=== PATIENT | female | born 1935 | race Caucasian/White ===

== ENCOUNTER → 2017-05-31 | Outpatient (CLI) | payer MEDICARE, BC ==
--- NOTE | 2017-05-31 14:21 | USB ---
EXAMINATION TYPE: US breast limited RT DATE OF EXAM: 05/31/2017 COMPARISON: NONE CLINICAL HISTORY: N63 PALPABLE MASS. Targeted right breast ultrasound was performed from the 9:00 to the 12:00 position as well as the ret roareolar region and the axillary tail. At 10:00, 3 cm from the nipple there is a single prominent du ct. The patient does not note nipple discharge. No suspicious sonographic findings are seen. No cysti c or solid masses are present. IMPRESSION: BI-RADS 2- Benign finding. Annual screening mammography is recommended. Single prominent duct is noted. If nipple discharge is present ductogram could be performed.
--- NOTE | 2017-06-01 08:04 | MM ---
Reason for exam: clinical finding. Last mammogram was performed 15 years ago. History: Patient is postmenopausal. Took estrogen for 27 years. Indicated problem(s): lump or thickening in the right breast. Physical Findings: Nurse did not find any significant physical abnormalities on exam. MG 3D Diag Mammo W/Cad JOSE Bilateral CC and MLO view(s) were taken. Prior study comparison: August 06, 2015, mammogram. July 08, 2014, mammogram. There are scattered fibroglandular densities. Finding: There is a 2mm group of coarse heterogeneous calcifications in the upper outer quadrant, middle position of the left breast. These results were verbally communicated with the patient and result sheet given to the patient on 05/31/17. ASSESSMENT: Suspicious, BI-RAD 4 RECOMMENDATION: Stereotactic core biopsy of the left breast. (ultrasound of right palpable) Called Dr. Sawyer with mammographic findings and has scheduled an appointment for the patient for 06/06/17 at 9:[address] Loza. PRELIMINARY REPORT CALLED AND FAXED TO DR. LOZA ON 06/01/17 /TP.
== END | disposition home or self-care (01) ==
LOC: RADMAMWWP 10:30
PROVIDERS: ATTEND Internal Medicine
DX: R92.8 Other abnormal and inconclusive findings on diagnostic imaging of breast (principal); N63 Unspecified lump in breast
CPT/HCPCS: 76642; G0204; G0279

== ENCOUNTER → 2017-06-16 | Day surgery (SDC) | payer MEDICARE, BC ==
[2017-06-16 08:14] VITALS: PULSE 61; RESP 16; BMI 24.7
[2017-06-16 09:44] VITALS: BP 147/74; TEMP 98.1
--- NOTE | 2017-06-16 09:53 | MM ---
EXAMINATION TYPE: MG stereo VAD BX LT DATE OF EXAM: 06/16/2017 COMPARISON: Prior mammogram May 31, 2017 and older mammograms CLINICAL HISTORY: Abnormal mammogram TECHNIQUE: Stereotactic guided core biopsy of left breast. FINDINGS: The procedure of stereotactic guided core biopsy was explained to the patient. Benefits, a lternatives, and risks were discussed. An informed consent was then obtained. [facility] for biopsy was chosen. Shortness pathway was lateral approach. I performed the localization, then surgeon, Dr. Loza performed the remainder of the procedure. A vacuum phorus biopsy gun was used to obtain multiple core samples. The patient tolerated the procedure well without any immediate complication. The patient was kept in the radiology department for short stay after the procedure and then discharged home in stable condi tion. Targeted calcifications are identified in specimen mammogram. Post biopsy mammogram shows the clip to appear in satisfactory position relative to the targeted area of concern on the preprocedure images. No residual calcifications are identified. IMPRESSION: SUCCESSFUL, UNCOMPLICATED STEREOTACTIC GUIDED CORE BIOPSY OF AREA OF CONCERN IN THE LEFT BREAST, FULL PATHOLOGY RESULTS TO FOLLOW. Low index of suspicion noted at time of procedure.
--- NOTE | 2017-06-16 13:29 | PCN ---
PROCEDURE NOTE The patient is an 82-year-old white female who presents for a mammographic abnormality noted in the left breast. A bilateral mammogram was performed on 05/31/2017. The right breast did not reveal any lesions of concern. In the left breast, there was a 2 mm group of coarse heterogeneous calcifications in the upper outer quadrant middle position of the left breast. The patient on physical examination had no supraclavicular, cervical or axillary adenopathy of concern. Multi positional exam of both breasts did not reveal any dominant masses or nodules of concern. PROCEDURE: The procedure performed was a left breast stereotactic core biopsy. The location of the lesion was in the upper outer quadrant in the middle position of the left breast. The approach used to target the lesion was lateral to medial. The decision for this was secondary to the distance which would be travel, the compression of the breast and the attempt to avoid the vessels. Following targeting of the lesion, the skin of the breast was prepped using Betadine and 1% lidocaine was used to anesthetize the area of the skin and the deep tissues. A Eviva 9-gauge vacuum needle was introduced to the correct location. Prefire films were obtained. Postfire films were then obtained and the biopsy was performed. The specimen was radiographed and calcifications were identified. Following this, an titanium clip was placed. Radiograph revealed that the clip was in the correct location. The patient tolerated the procedure in stable condition. The specimen was sent for pathologic evaluation. MMODL / IJN: [id number] /
== END ==
LOC: RADMAMWWP 07:50
PROVIDERS: ATTEND Surgery
DX: R92.8 Other abnormal and inconclusive findings on diagnostic imaging of breast (principal); N60.12 Diffuse cystic mastopathy of left breast
CPT/HCPCS: 19081; A4648; J2001; 88305

== ENCOUNTER → 2018-11-01 | Outpatient (CLI) | payer MEDICARE, BC ==
--- NOTE | 2018-11-04 09:57 | MM ---
Reason for exam: additional evaluation requested from prior study. Last mammogram was performed 1 year and 5 months ago. History: Patient is postmenopausal. Benign MG stereo VAD BX LT of the left breast, June 16, 2017. Took estrogen for 27 years. Physical Findings: Nurse did not find any significant physical abnormalities on exam. MG 3D Diag Mammo W/Cad JOSE Bilateral CC and MLO view(s) were taken. Prior study comparison: May 31, 2017, bilateral MG 3d diag mammo w/cad JOSE. August 06, 2015, mammogram. The breast tissue is heterogeneously dense. This may lower the sensitivity of mammography. Previous mammotome biopsy in the left breast. No significant new finding when compared with prior studies. These results were verbally communicated with the patient and result sheet given to the patient on 11/01/18. ASSESSMENT: Benign, BI-RAD 2 RECOMMENDATION: Routine screening mammogram of both breasts in 1 year.
== END | disposition home or self-care (01) ==
LOC: RADMAMWWP 09:19
PROVIDERS: ATTEND Internal Medicine
DX: R92.8 Other abnormal and inconclusive findings on diagnostic imaging of breast (principal)
CPT/HCPCS: 77066; G0279; 77062

== ENCOUNTER → 2019-02-11 | Outpatient (CLI) | payer MEDICARE, BC ==
--- NOTE | 2019-02-11 09:10 | XR ---
EXAMINATION TYPE: XR chest 2V DATE OF EXAM: 02/11/2019 COMPARISON: 09/10/2017 HISTORY: Shortness of breath TECHNIQUE: Frontal and lateral views of the chest are obtained. FINDINGS: Scattered senescent parenchymal changes noted. Hyperinflation compatible with COPD. No evidence for infiltrate. No evidence for atelectasis. Heart size is stable. Mediastinal structures are stable and grossly unremarkable. No evidence for hilar prominence. Degenerative changes dorsal spine. IMPRESSION: 1. No evidence for acute pulmonary disease.
== END | disposition home or self-care (01) ==
LOC: RADXRMAIN 08:43
PROVIDERS: ATTEND Internal Medicine
DX: J06.9 Acute upper respiratory infection, unspecified (principal)
CPT/HCPCS: 71046

== ENCOUNTER → 2019-06-14 | Outpatient (CLI) | payer MEDICARE, BC ==
[2019-06-15 01:31] LABS: Immunoglobulin E 3.57 IU/mL (0.00-114.00); Immunoglobulin E 4.56 IU/mL (0.00-114.00)
[2019-06-15 01:54] LABS: Cat Epith & Dander IgE <0.10 kU/L; Dermato. farinae IgE <0.10 kU/L; Dog Dander IgE <0.10 kU/L
[2019-06-15 01:56] LABS: Alternaria alternata IgE <0.10 kU/L; Aspergillus fumagatus IgE <0.10 kU/L; Birch IgE <0.10 kU/L; Cladosporian herbarum IgE <0.10 kU/L; Cockroach IgE <0.10 kU/L; Elm IgE <0.10 kU/L; Maple (Box Elder) IgE <0.10 kU/L; Oak IgE <0.10 kU/L
[2019-06-15 01:57] LABS: Ragweed,Common IgE <0.10 kU/L
[2019-06-15 01:58] LABS: Egg White IgE <0.10 kU/L; Red Top (Bentgrass) IgE <0.10 kU/L
[2019-06-15 01:59] LABS: Codfish IgE <0.10 kU/L
[2019-06-15 02:00] LABS: Peanut IgE <0.10 kU/L; Soybean IgE <0.10 kU/L
[2019-06-15 02:01] LABS: Clam IgE <0.10 kU/L; Shrimp IgE <0.10 kU/L; Walnut IgE (Food) <0.10 kU/L
[2019-06-15 02:02] LABS: Scallop IgE <0.10 kU/L
== END | disposition home or self-care (01) ==
LOC: LABWHC1 16:34
PROVIDERS: ATTEND Internal Medicine Critical Care Medicine
DX: J40 Bronchitis, not specified as acute or chronic (principal); J45.998 Other asthma; R05 Cough
CPT/HCPCS: 36415; 82785; 85008; 86003

== ENCOUNTER → 2019-10-25 | Outpatient (CLI) | payer MEDICARE, BC ==
--- NOTE | 2019-10-25 12:53 | BD ---
EXAMINATION TYPE: Axial Bone Density DATE OF EXAM: 10/25/2019 COMPARISON: NONE CLINICAL HISTORY: Z 78.0 Height: 59 IN Weight: 124 LBS FRAX RISK QUESTIONS: Alcohol (3 or more units per day): Family History (Parent hip fracture): Glucocorticoids (More than 3mos): (Ex: prednisone, prednisolone, methylprednisolone, dexamethasone, and hydrocortisone). History of Fracture in Adulthood: YES LT ANKLE AGE 83; LT WRIST AGE 83; LT WRIST AGE 60; RT WRIST A GE 60 Secondary Osteoporosis: 3. Menopause before 45: TOTAL HYST AGE 37 4. Malnutrition: YES RISK FACTORS HISTORY OF: History of Wrist Fracture: LT WRIST AGE 83 AND AGE 60; RT WRIST AGE 60 Surgery to Spine: L-SPINE SURGERY 2004 AND 2009 Family History of Osteoporosis: YES SISTERS(M) Active: YES Diet low in dairy products/other sources of calcium: YES Postmenopausal woman: TOTAL HYST AGE 37 Take estrogen and/or progesterone medications: NOT NOW How long: AGE 35-55 Lost more than 2 inches in height since high school: YES 3 " MEDICATIONS: Thyroid Medications: YES Which medication: Levothyroxine How Lon+ YEARS Osteoporosis Medications: NOT NOW Which medication: Fosamax How Lon YEARS Additional Medications: LEVOTHYROXINE, MULTI VIT, B12, CHOLESTEROL MEDS EXAM MEASUREMENTS: Bone mineral densitometry was performed using the [employer] System. L-SPINE SURGERY 2004 AND 2009 Bone mineral density about the R hip (g/cm2): 0.722 Bone mineral density about the L hip (g/cm2): 0.705 T Score values are as follows: -----R Neck: -2.3 -----L Neck: -2.4 -----R Total: -2.0 -----L Total: -1.9 Bone mineral density BASELINE JOSE WRIST FX AGE 60; LT WRIST FX AGE 83 IMPRESSION: Osteopenia (T Score between -2.5 and -1). There is slightly increased risk of fracture and the patient may be considered for treatment. Re-Screen 2-5 years. NOTE: T-SCORE=SD OF THE YOUNG ADULT MEAN. `
== END | disposition home or self-care (01) ==
LOC: RADBDWWP 09:47
PROVIDERS: ATTEND Internal Medicine
DX: M85.80 Other specified disorders of bone density and structure, unspecified site (principal); Z78.0 Asymptomatic menopausal state
CPT/HCPCS: 77080

== ENCOUNTER → 2020-05-29 | Outpatient (CLI) | payer MEDICARE, BC ==
[2020-05-29 13:19] LABS: HCT 36.4 % (34.0-46.0); HGB 11.2 gm/dL (11.4-16.0); Hypochromasia Marked; MCH 28.9 pg (25.0-35.0); MCHC 30.7 g/dL (31.0-37.0); MCV 94.2 fL (80.0-100.0); Mean Platelet Volume 6.9; Platelet Count 180 k/uL (150-450); RBC 3.87 m/uL (3.80-5.40); RDW 14.7 % (11.5-15.5)
[2020-05-29 13:34] LABS: African American GFR (CKD) >90 (>60 ml/min/1.73 sqM); Anion Gap 9 mmol/L; Blood Urea Nitrogen 16 mg/dL (7-17); Carbon Dioxide 26 mmol/L (22-30); Chloride 102 mmol/L (98-107); Non-African American GFR(CKD) 86 (>60 ml/min/1.73 sqM); Potassium 4.6 mmol/L (3.5-5.1); Sodium 137 mmol/L (137-145)
== END | disposition home or self-care (01) ==
LOC: LABPAT 10:46
PROVIDERS: ATTEND Internal Medicine Interventional Cardiology
DX: Z01.818 Encounter for other preprocedural examination (principal); R06.02 Shortness of breath
CPT/HCPCS: 80051; 82565; 84520; 85027

== ENCOUNTER 2020-06-02 06:29 | Day surgery (SDC) | payer MEDICARE, BC ==
[2020-05-28 09:25] VITALS: BMI 23.6
[~2020-06-02 06:29] MED LIST: ALPRAZolam 0.25 MG TAB PO PRN; ALPRAZolam 0.5 MG TAB PO PRN; ASPIRIN 325 MG TAB PO STA; ATORVASTATIN 80 MG TAB PO STA; NITROGLYCERIN SL TABS 0.4 MG TAB SUBLINGUAL PRN; SODIUM CHLORIDE 0.9% 1,000 ML in EMPTY BAG 1 BAG IV ONE
[2020-06-02] MEDS ORDERED: SODIUM CHLORIDE 0.9% 1,000 ML IV ONE (07:07)
[2020-06-02 07:10] VITALS: RESP 16; TEMP 98.8
[2020-06-02] MEDS ORDERED: LIDOCAINE 1% INJ 10MG/ML (20 ML MDV) ONE (07:19)
[2020-06-02] MEDS ORDERED: VERAPAMIL 2.5 MG/ML 2 ML AMP ONE (07:20)
[2020-06-02] MEDS ORDERED: HEPARIN SODIUM 1,000 UN/ML (10ML VL) ONE (07:55)
[2020-06-02] MEDS ORDERED: fentaNYL (PF) 50 MCG/ML 2 ML AMP ONE (07:55)
[2020-06-02] MEDS: MIDAZOLAM 2 MG/2 ML VIAL IVP ONE ×2 (07:58→08:06)
[2020-06-02] MEDS: fentaNYL (PF) 50 MCG/ML 2 ML AMP IVP ONE ×2 (07:58→08:06)
[2020-06-02] MEDS ORDERED: LIDOCAINE 1% INJ 10MG/ML (20 ML MDV) SQ ONE (08:00)
[2020-06-02] MEDS ORDERED: VERAPAMIL SYRINGE (5 MG/10 ML) INTRAARTER ONE (08:02)
[2020-06-02] MEDS ORDERED: HEPARIN SODIUM 1,000 UN/ML (10ML VL) IV ONE (08:03)
[2020-06-02] MEDS ORDERED: IOPAMIDOL-370 125ML BTL INJ ONE (08:12)
[2020-06-02] MEDS ORDERED: RX INFO: IV CONTRAST WAS GIVEN 1 EACH MISC MISCELLANE PRN (08:16)
[2020-06-02] MEDS ORDERED: SODIUM CHLORIDE 0.9% 1,000 ML IV SCH (08:30)
--- NOTE | 2020-06-02 09:35 | CC ---
CARDIAC CATHETERIZATION REPORT DATE OF SERVICE: 06/02/2020 PERFORMING PHYSICIAN: Leland Bardales MD. PROCEDURE PERFORMED: 1. Selective right and left coronary angiogram. 2. Left heart catheterization. INDICATION: This is a very pleasant 85-year-old female patient with hypertension and dyslipidemia who was experiencing symptoms of shortness of breath. The shortness of breath with exertion. She was seen by her graduating machine operator, Dr. Shah, who ruled out any pulmonary etiology for the shortness of breath, which was concerning for angina equivalent. Because of that, a heart catheterization was advised. APPROACH: Right radial artery. COMPLICATION: None. LEVEL OF SEDATION: Moderate with sedation length of 16 minutes. PROCEDURE DESCRIPTION: After obtaining an informed consent, the patient was brought to the cardiac blood bank laboratory technician. The right radial artery was cannulated using micropuncture technique and a micropuncture wire passed easily then I placed a 5-[place]izen [place] sheath out. Subsequently I did selective right and left or history I did place a 6-[place]izen [place] sheath. I gave the patient 2 mg of verapamil IA and 6000 units of heparin IV. Selective right and left coronary angiogram performed using JR4 and JL3.5 catheters. Left heart catheterization was performed using the JR4 catheter which crossed the aortic valve then I did pullback across the valve. The procedure was completed without any complication. SELECTIVE CORONARY ANGIOGRAM: 1. The right coronary artery is a large caliber vessel and is a dominant vessel, appeared to be angiographically normal. The study bifurcates into PDA and PLV branches and both appeared to be angiographically normal. 2. The left main is angiographically normal. It bifurcates into left circumflex and left anterior descending artery. 3. The left circumflex is a large caliber vessel, it is a nondominant vessel. The left circumflex is angiographically normal and gives rise into first and second obtuse marginal branches both appeared to be angiographically normal. 4. The LAD: The LAD is angiographically normal. Within the proximal portion, it gives rise into a large diagonal branch which seems to be angiographically normal. 5. HEMODYNAMICS: The LVEDP was 4-8 mmHg without significant gradient across the aortic valve. CONCLUSION: 1. Normal coronary angiogram. 2. Normal LVEDP. POSTPROCEDURE MANAGEMENT: 1. Medical treatment. 2. Follow up with the patient. MMODL / IJN: [id number] /
--- NOTE | 2020-06-02 09:47 | LTR ---
DATE OF SERVICE: 06/02/2020 RE: Chelita Bundy Dear Dr. Barrow: Ms. Chelita Bundy underwent today heart catheterization and that showed normal coronaries. I want to thank you for allowing us to participate in her care and please do not hesitate to call if you have any question or concern. Sincerely yours, Leland Bardales MD MMASTRID / GLORIA: [id number] /
[2020-06-02] MEDS ORDERED: MAG HYDROX/AL HYDROX/SIMETH 30 ML CUP PO PRN (10:14)
[2020-06-02] MEDS ORDERED: MAG HYDROX/AL HYDROX/SIMETH 30 ML CUP ONE (11:09)
[2020-06-02 13:31] VITALS: BP 128/72; PULSE 70
== END 2020-06-02 13:15 | disposition home or self-care (01) ==
LOC: CATHCVL 06:29
PROVIDERS: ATTEND Internal Medicine Interventional Cardiology
DX: R06.02 Shortness of breath (principal); I10 Essential (primary) hypertension; E78.5 Hyperlipidemia, unspecified; J45.909 Unspecified asthma, uncomplicated; Z88.2 Allergy status to sulfonamides; Z79.890 Hormone replacement therapy; Z79.51 Long term (current) use of inhaled steroids; Z79.82 Long term (current) use of aspirin; Z79.899 Other long term (current) drug therapy; Z72.0 Tobacco use
CPT/HCPCS: 93458; C1769 ×2; C1894; J2250; J2001; J3010; J1644; Q9967

== ENCOUNTER → 2020-08-13 | Outpatient (CLI) | payer MEDICARE, BC ==
--- NOTE | 2020-08-13 10:28 | FL ---
Barium swallow HISTORY: K 46.9, K 21.9 Patient was given high density barium to drink. 1 minute 32 seconds fluoroscopy time, 10 intraoperative images The swallowing mechanism is normal. There is a moderate hiatal hernia with partial intrathoracic stom ach noted. Tertiary esophageal contractions are present. Incidental note made of thoracic cord stimul ator. No gastroesophageal reflux identified during the course of the exam. IMPRESSION: Moderate hiatal hernia with partial intrathoracic stomach
== END | disposition home or self-care (01) ==
LOC: RADUSWWP 08:54
PROVIDERS: ATTEND Surgery
DX: K44.9 Diaphragmatic hernia without obstruction or gangrene (principal)
CPT/HCPCS: 74220

== ENCOUNTER → 2020-08-26 | Outpatient (CLI) | payer MEDICARE, BC ==
--- NOTE | 2020-08-26 16:06 | CT ---
EXAMINATION TYPE: CT chest abdomen wo con DATE OF EXAM: 08/26/2020 INDICATION: hiatal hernia COMPARISON: None CT DLP: 260 mGycm CONTRAST: Performed with Oral Contrast. TECHNIQUE: Axial images at 5 mm thick sections. Reconstructed images in the coronal plane. Delayed images through the kidneys. FINDINGS: CT CHEST: Portion of the thyroid visualized is normal. There is a 0.4 cm nodule within the periphery of the right upper lobe. Series 4 image 10. An addition al 0.4 cm nodule study more inferior. Series 4 image 13. No enlarged mediastinal or hilar adenopathy is evident. The ascending aorta diameter at the level of the main pulmonary artery is 3.2 cm. The main pulmonary artery diameter at the bifurcation is 3.1 cm. Coronary artery indications present. CT ABDOMEN: There is a moderate size hiatal hernia present. Contrast within the hiatal hernia. Liver: Normal Spleen: Normal Pancreas: Normal Adrenal glands: The adrenal glands are normal. Gallbladder: Normal Kidneys: No masses are evident. No hydronephrosis is present. No cysts are present. Delayed images were obtained through the kidneys, which remain unremarkable. Aorta: Vascular calcification is within the aorta. Inferior vena cava: Normal. Limited CT PELVIS: Loops of bowel within the abdomen and pelvis are normal. There are loops of bowel which are incom pletely distended or lack oral contrast limiting their evaluation. Appendix: Not visualized IMPRESSIONS: 1. 1. Moderate size hiatal hernia with oral contrast present. Reflux is not excluded. 2. Small pulmonary nodules peripherally right upper lobe. Follow-up exam in one year can be performed . Follow-up in 6 months if the patient is at high risk.
== END | disposition home or self-care (01) ==
LOC: RADCTMAIN 09:56
PROVIDERS: ATTEND Surgery
DX: K44.9 Diaphragmatic hernia without obstruction or gangrene (principal); R91.8 Other nonspecific abnormal finding of lung field
CPT/HCPCS: 71250; 74150

== ENCOUNTER 2020-09-08 12:35 | Inpatient (IN) | payer MEDICARE, BC ==
[2020-09-08] MEDS ORDERED: PANTOPRAZOLE 40 MG/10 ML VIAL IVP STA (13:10)
[2020-09-08] MEDS ORDERED: SODIUM CHLORIDE 0.9% 1,000 ML IV STA (13:10)
--- NOTE | 2020-09-08 13:13 | ED ---
General Adult HPI - General Chief complaint: Recheck/Abnormal Lab/Rx Stated complaint: abn labs Time Seen by Provider: 09/08/20 12:40 Source: patient, RN notes reviewed, old records reviewed Mode of arrival: ambulatory Limitations: no limitations - History of Present Illness Initial comments: This is a 85-year-old female with a past medical history significant for hiatal hernia. Patient comes in today because she was getting some preop labs and he told her hemoglobin was extremely low per patient states she has been very weak lately and tired but denies any known bleeding. Patient denies any black or bloody stools. Patient states she's not had a history of anemia. Patient denies any chest pain difficulty breathing shortness of breath. Patient denies any abdominal pain. Patient denies nausea vomiting diarrhea. Patient denies lightheadedness or dizziness. Patient states she's been feeling very weak for a month or so now - Related Data Home Medications Medication Instructions Recorded Confirmed Levothyroxine Sodium [Synthroid] 175 mcg PO DAILY 05/31/17 09/08/20 Simvastatin 40 mg PO DAILY 05/31/17 09/08/20 Albuterol Sulfate [Proair Hfa] 1 - 2 puff INHALATION RT-Q6H PRN 05/28/20 09/08/20 HYDROcodone/APAP 7.5-325MG [[place] 1 tab PO Q6H PRN 05/28/20 09/08/20 7.5-325] Montelukast [Singulair] 10 mg PO DAILY 05/28/20 09/08/20 Multivit with Calcium,Iron,Min 1 tab PO DAILY 05/28/20 09/08/20 [Women's Multivitamin] Atorvastatin Calcium [Lipitor] 20 mg PO DAILY 09/08/20 09/08/20 Budesonide [Pulmicort] 0.5 mg INHALATION RT-BID 09/08/20 09/08/20 Diltiazem HCl [Diltiazem HCl 24Hr 120 mg PO DAILY 09/08/20 09/08/20 ER] Formoterol Fumarate [Perforomist] 20 mcg INHALATION RT-BID 09/08/20 09/08/20 Furosemide [Lasix] 20 mg PO DAILY PRN 09/08/20 09/08/20 Metoprolol Succinate (ER) [Toprol 25 mg PO DAILY 09/08/20 09/08/20 Xl] Omeprazole 40 mg PO DAILY 09/08/20 09/08/20 Sertraline HCl [Zoloft] 50 mg PO DAILY 09/08/20 09/08/20 traZODone HCL [Desyrel] 50 mg PO HS 09/08/20 09/08/20 Allergies Allergy/AdvReac Type Severity Reaction Status Date / Time bee venom protein (honey bee) Allergy Anaphylaxis Verified 09/08/20 13:19 Sulfa (Sulfonamide Allergy Rash/Hives Verified 09/08/20 13:19 Antibiotics) Review of Systems ROS Statement: Those systems with pertinent positive or pertinent negative responses have been documented in the HPI. ROS Other: All systems not noted in ROS Statement are negative. Past Medical History Past Medical History: Asthma, Hyperlipidemia, Hypertension, Thyroid Disorder Additional Past Medical History / Comment(s): shortness of breath, past vertigo hx. seasonal allergies. History of Any Multi-Drug Resistant Organisms: None Reported Past Surgical History: Back Surgery, Orthopedic Surgery Additional Past Surgical History / Comment(s): back sx X2, states has rods and screws, Left wrist sx, left elbow sx, left eye retina sx, cristin cataracts, spinal cord stimulator for pain placed june 2016. Past Anesthesia/Blood Transfusion Reactions: No Reported Reaction Past Psychological History: No Psychological Hx Reported Smoking Status: Former smoker General Exam - General Exam Comments Initial Comments: GENERAL: Patient is well-developed and well-nourished. Patient is nontoxic and well- hydrated and is in no acute distress. ENT: Neck is soft and supple. No significant lymphadenopathy is noted. Oropharynx is clear. Moist mucous membranes. Neck has full range of motion without eliciting any pain. RECTAL: Stool was brown no bright red blood was noted. EYES: The sclera were anicteric and conjunctiva were pink and moist. Extraocular movements were intact and pupils were equal round and reactive to light. Eyelids were unremarkable. PULMONARY: Unlabored respirations. Good breath sounds bilaterally. No audible rales rho nchi or wheezing was noted. CARDIOVASCULAR: There is a regular rate and rhythm without any murmurs gallops or rubs. Femoral pulses are equal bilaterally ABDOMEN: Soft and nontender with normal bowel sounds. No palpable organomegaly was noted. There is no palpable pulsatile mass. SKIN: Skin is somewhat pale NEUROLOGIC: Patient is alert and oriented x3. Cranial nerves II through XII are grossly intact. Motor and sensory are also intact. Normal speech, volume and content. Symmetrical smile. MUSCULOSKELETAL: Normal extremities with adequate strength and full range of motion. No lower extremity swelling or edema. No calf tenderness. LYMPHATICS: No significant lymphadenopathy is noted PSYCHIATRIC: Normal psychiatric evaluation. Limitations: no limitations Course Vital Signs 09/08/20 12:36 Temperature 98.6 F Pulse Rate 104 H Respiratory 18 Rate Blood Pressure 128/71 O2 Sat by Pulse 97 Oximetry Medical Decision Making - Medical Decision Making Patient's hemoglobin is 5.2 I ordered 2 units of packed red blood cells. I spoke with Dr. Khan and he accepted the patient admitted the patient wrote admitting orders. - Lab Data Result diagrams: 09/08/20 13:15 09/08/20 13:15 Lab Results 09/08/20 09/08/20 09/08/20 Range/Units 13:15 13:15 13:15 WBC 2.9 L (3.8-10.6) k/uL RBC 2.28 L (3.80-5.40) m/uL Hgb 5.2 L* (11.4-16.0) gm/dL Hct 17.6 L* (34.0-46.0) % MCV 77.1 L (80.0-100.0) fL MCH 22.7 L (25.0-35.0) pg MCHC 29.4 L (31.0-37.0) g/dL RDW 16.3 H (11.5-15.5) % Plt Count 122 L (150-450) k/uL MPV 7.7 Neutrophils % 56 % Lymphocytes % 26 % Monocytes % 11 % Eosinophils % 2 % Basophils % 1 % Neutrophils # 1.6 (1.3-7.7) k/uL Lymphocytes # 0.7 L (1.0-4.8) k/uL Monocytes # 0.3 (0-1.0) k/uL Eosinophils # 0.1 (0-0.7) k/uL Basophils # 0.0 (0-0.2) k/uL Hypochromasia Marked Poikilocytosis Slight Anisocytosis Slight Microcytosis Slight PT 10.1 (9.0-12.0) sec INR 1.0 (<1.2) APTT 18.8 L (22.0-30.0) sec Sodium 136 L (137-145) mmol/L Potassium 4.2 (3.5-5.1) mmol/L Chloride 106 (98-107) mmol/L Carbon Dioxide 27 (22-30) mmol/L Anion Gap 3 mmol/L BUN 14 (7-17) mg/dL Creatinine 0.68 (0.52-1.04) mg/dL Est GFR (CKD-EPI)AfAm >90 (>60 ml/min/1.73 sqM) Est GFR (CKD-EPI)NonAf 81 (>60 ml/min/1.73 sqM) Glucose 106 H (74-99) mg/dL Calcium 8.7 (8.4-10.2) mg/dL Magnesium 1.9 (1.6-2.3) mg/dL Total Bilirubin 0.2 (0.2-1.3) mg/dL AST 24 (14-36) U/L ALT 14 (4-34) U/L Alkaline Phosphatase 57 (38-126) U/L Troponin I (0.000-0.034) ng/mL Total Protein 6.9 (6.3-8.2) g/dL Albumin 3.8 (3.5-5.0) g/dL Stool Occult Blood (Negative) 09/08/20 09/08/20 Range/Units 13:15 13:17 WBC (3.8-10.6) k/uL RBC (3.80-5.40) m/uL Hgb (11.4-16.0) gm/dL Hct (34.0-46.0) % MCV (80.0-100.0) fL MCH (25.0-35.0) pg MCHC (31.0-37.0) g/dL RDW (11.5-15.5) % Plt Count (150-450) k/uL MPV Neutrophils % % Lymphocytes % % Monocytes % % Eosinophils % % Basophils % % Neutrophils # (1.3-7.7) k/uL Lymphocytes # (1.0-4.8) k/uL Monocytes # (0-1.0) k/uL Eosinophils # (0-0.7) k/uL Basophils # (0-0.2) k/uL Hypochromasia Poikilocytosis Anisocytosis Microcytosis PT (9.0-12.0) sec INR (<1.2) APTT (22.0-30.0) sec Sodium (137-145) mmol/L Potassium (3.5-5.1) mmol/L Chloride (98-107) mmol/L Carbon Dioxide (22-30) mmol/L Anion Gap mmol/L BUN (7-17) mg/dL Creatinine (0.52-1.04) mg/dL Est GFR (CKD-EPI)AfAm (>60 ml/min/1.73 sqM) Est GFR (CKD-EPI)NonAf (>60 ml/min/1.73 sqM) Glucose (74-99) mg/dL Calcium (8.4-10.2) mg/dL Magnesium (1.6-2.3) mg/dL Total Bilirubin (0.2-1.3) mg/dL AST (14-36) U/L ALT (4-34) U/L Alkaline Phosphatase (38-126) U/L Troponin I <0.012 (0.000-0.034) ng/mL Total Protein (6.3-8.2) g/dL Albumin (3.5-5.0) g/dL Stool Occult Blood Negative (Negative) Critical Care Time Critical Care Time: Yes Total Critical Care Time: 35 Disposition Clinical Impression: Anemia Disposition: ADMITTED IP TO THIS HOSP Referrals: Joana Barrow MD [Primary Care Provider] - 1-2 days Time of Disposition: 14:31
[2020-09-08 13:37] LABS: Anisocytosis Slight; Basophils % (A) 1 %; Eosinophils # (A) 0.1 k/uL (0-0.7); Eosinophils % (A) 2 %; Hypochromasia Marked; Lymphocytes # (A) 0.7 k/uL (1.0-4.8); Lymphocytes % (A) 26 %; MCH 22.7 pg (25.0-35.0); MCHC 29.4 g/dL (31.0-37.0); MCV 77.1 fL (80.0-100.0); Mean Platelet Volume 7.7; Microcytosis Slight; Monocytes # (A) 0.3 k/uL (0-1.0); Monocytes % (A) 11 %; Neutrophils # (A) 1.6 k/uL (1.3-7.7); Neutrophils % (A) 56 %; Platelet Count 122 k/uL (150-450); Poikilocytosis Slight; RBC 2.28 m/uL (3.80-5.40); RDW 16.3 % (11.5-15.5); WBC 2.9 k/uL (3.8-10.6)
[2020-09-08 13:42] LABS: HCT 17.6 % (34.0-46.0)
[2020-09-08 13:43] LABS: HGB 5.2 gm/dL (11.4-16.0)
[2020-09-08 13:57] LABS: ALT 14 U/L (4-34); AST 24 U/L (14-36); African American GFR (CKD) >90 (>60 ml/min/1.73 sqM); Albumin 3.8 g/dL (3.5-5.0); Alkaline Phosphatase 57 U/L (38-126); Anion Gap 3 mmol/L; Blood Urea Nitrogen 14 mg/dL (7-17); Calcium 8.7 mg/dL (8.4-10.2); Carbon Dioxide 27 mmol/L (22-30); Chloride 106 mmol/L (98-107); Glucose 106 mg/dL (74-99); Magnesium 1.9 mg/dL (1.6-2.3); Non-African American GFR(CKD) 81 (>60 ml/min/1.73 sqM); Potassium 4.2 mmol/L (3.5-5.1); Sodium 136 mmol/L (137-145); Total Bilirubin 0.2 mg/dL (0.2-1.3); Total Protein 6.9 g/dL (6.3-8.2)
[2020-09-08 14:01] LABS: Prothrombin Time 10.1 sec (9.0-12.0)
[2020-09-08 14:19] LABS: Partial Thromboplastin Time 18.8 sec (22.0-30.0)
[2020-09-08] MEDS ORDERED: SODIUM CHLORIDE 0.9% 1,000 ML IV ONE (14:31)
[2020-09-08] MEDS ORDERED: FUROSEMIDE 20 MG TAB PO PRN (14:31)
--- NOTE | 2020-09-08 14:37 | P.HPIM ---
History of Present Illness H&P Date: 09/08/20 Chief Complaint: Abnormal lab work This is a 85-year-old female with past medical history noted below who presented to the emergency room with abnormal lab work. Patient said that she was scheduled for a hiatal hernia repair next week and was scheduled for regular lab work today and was called as her hemoglobin was 5.5. She was directed to come into the emergency room. Patient said that over the past several weeks she has been feeling weak and having difficulties with shortness of breath. She attributed her shortness of breath to the large size hernia that she had. She denies any bleeding anywhere. She reports having normal bowel movement. She never had problems with anemia before. She did not require blood transfusion in the past. Last lab work done in May showed hemoglobin of 11.1. Patient appeared comfortable and denies any abdominal pain. She does not have any concerns otherwise. Hemoccult test in the ER was negative. She will be admitted to the hospital for further management. Review of Systems Review of system: 14 points review of systems were obtained and were negative except to what were mentioned in the HPI. Past Medical History Past Medical History: Asthma, Hyperlipidemia, Hypertension, Thyroid Disorder Additional Past Medical History / Comment(s): shortness of breath, past vertigo hx. seasonal allergies. History of Any Multi-Drug Resistant Organisms: None Reported Past Surgical History: Back Surgery, Orthopedic Surgery Additional Past Surgical History / Comment(s): back sx X2, states has rods and screws, Left wrist sx, left elbow sx, left eye retina sx, cristin cataracts, spinal cord stimulator for pain placed june 2016. Past Anesthesia/Blood Transfusion Reactions: No Reported Reaction Past Psychological History: No Psychological Hx Reported Smoking Status: Former smoker Medications and Allergies Home Medications Medication Instructions Recorded Confirmed Type Levothyroxine Sodium [Synthroid] 175 mcg PO DAILY 05/31/17 09/08/20 History Simvastatin 40 mg PO DAILY 05/31/17 09/08/20 History Albuterol Sulfate [Proair Hfa] 1 - 2 puff INHALATION RT-Q6H PRN 05/28/20 09/08/20 History HYDROcodone/APAP 7.5-325MG [[place] 1 tab PO Q6H PRN 05/28/20 09/08/20 History 7.5-325] Montelukast [Singulair] 10 mg PO DAILY 05/28/20 09/08/20 History Multivit with Calcium,Iron,Min 1 tab PO DAILY 05/28/20 09/08/20 History [Women's Multivitamin] Atorvastatin Calcium [Lipitor] 20 mg PO DAILY 09/08/20 09/08/20 History Budesonide [Pulmicort] 0.5 mg INHALATION RT-BID 09/08/20 09/08/20 History Diltiazem HCl [Diltiazem HCl 24Hr 120 mg PO DAILY 09/08/20 09/08/20 History ER] Formoterol Fumarate [Perforomist] 20 mcg INHALATION RT-BID 09/08/20 09/08/20 History Furosemide [Lasix] 20 mg PO DAILY PRN 09/08/20 09/08/20 History Metoprolol Succinate (ER) [Toprol 25 mg PO DAILY 09/08/20 09/08/20 History Xl] Omeprazole 40 mg PO DAILY 09/08/20 09/08/20 History Sertraline HCl [Zoloft] 50 mg PO DAILY 09/08/20 09/08/20 History traZODone HCL [Desyrel] 50 mg PO HS 09/08/20 09/08/20 History Allergies Allergy/AdvReac Type Severity Reaction Status Date / Time bee venom protein (honey bee) Allergy Anaphylaxis Verified 09/08/20 13:19 Sulfa (Sulfonamide Allergy Rash/Hives Verified 09/08/20 13:19 Antibiotics) Physical Exam Vitals: Vital Signs Temp Pulse Resp BP Pulse Ox 09/08/20 12:36 98.6 F 104 H 18 128/71 97 Intake and Output 09/07/20 09/08/20 09/08/20 22:59 06:59 14:59 Other: Weight 56.699 kg General: The patient is awake and alert, in no distress Eye: there is normal conjunctiva bilaterally. Neck: The neck is supple, there is no JVD. Cardiovascular: Normal S1-S2, no S3-S4, no murmurs. Respiratory: Lungs clear to auscultation bilaterally Gastrointestinal: Abdomen is soft, nontender Musculoskeletal: There is no pedal edema. Neurological:. Speech is normal. Skin: Skin is warm and dry Results CBC & Chem 7: 09/08/20 13:15 09/08/20 13:15 Labs: Abnormal Lab Results - Last 24 Hours (Table) 09/08/20 09/08/20 09/08/20 Range/Units 13:15 13:15 13:15 WBC 2.9 L (3.8-10.6) k/uL RBC 2.28 L (3.80-5.40) m/uL Hgb 5.2 L* (11.4-16.0) gm/dL Hct 17.6 L* (34.0-46.0) % MCV 77.1 L (80.0-100.0) fL MCH 22.7 L (25.0-35.0) pg MCHC 29.4 L (31.0-37.0) g/dL RDW 16.3 H (11.5-15.5) % Plt Count 122 L (150-450) k/uL Lymphocytes # 0.7 L (1.0-4.8) k/uL APTT 18.8 L (22.0-30.0) sec Sodium 136 L (137-145) mmol/L Glucose 106 H (74-99) mg/dL Assessment and Plan Assessment: 1. Acute on chronic anemia, microcytic. exact etiology unclear. No evidence of GI bleed. We'll obtain iron profile, vitamin B12, and folate level. Patient had a colonoscopy last year at [facility] that was reported nor mal. I would consult hematology for further evaluation. 2. Chronic medical problems: hypertension, hypothyroidism, underlying COPD, hyperlipidemia: Continue home medications 3. DVT prophylaxis with SCD The patient is admitted with an anticipated greater than 2 midnight stay for evaluation of the medical problems noted above Discussed with: Patient and nursing staff Anticipated discharge date: To be determined based on clinical course Anticipated discharge place: home A total of 45 minutes was spent on the care of this complex patient more than 50% of the time was spent in counseling and care coordination.
[2020-09-08] MEDS: BUDESONIDE 0.5 MG/2 ML NEBU INHALATION SCH (19:36)
[2020-09-08 19:38] LABS: % Iron Saturation 7.75 (12.00-45.00); Iron 33 ug/dL (50-170); Total Iron Binding Capacity 426 ug/dL (228-460)
[2020-09-08] MEDS: FORMOTEROL FUMARATE 20 MCG/2 ML NEBU INHALATION SCH (19:47)
[2020-09-08 20:10] LABS: Folate, Serum >24.0 ng/mL
[2020-09-08] MEDS ORDERED: FUROSEMIDE 10 MG/ML 4 ML VIAL IV STA (20:14)
[2020-09-08 21:14] LABS: Anisocytosis Slight; HCT 26.6 % (34.0-46.0); Hypochromasia Marked; MCH 24.1 pg (25.0-35.0); MCHC 29.8 g/dL (31.0-37.0); MCV 80.9 fL (80.0-100.0); Mean Platelet Volume 8.1; Platelet Count 111 k/uL (150-450); Poikilocytosis Marked; RBC 3.28 m/uL (3.80-5.40); WBC 3.5 k/uL (3.8-10.6)
[2020-09-08 21:16] LABS: HGB 7.9 gm/dL (11.4-16.0)
[2020-09-08] MEDS: traZODone HCL 50 MG TAB PO SCH (21:19)
[2020-09-08] MEDS: METOPROLOL SUCCINATE (ER) 25 MG TAB.ER.24H PO SCH (21:19)
[2020-09-08 21:52] LABS: Band Neutrophils % 3 %; Eosinophils # (M) 0.04 k/uL (0-0.7); Lymphocytes # (M) 1.02 k/uL (1.0-4.8); Monocytes # (M) 0.21 k/uL (0-1.0); Neutrophils % (M) 61 %; Nucleated Red Blood Cells 0 /100 WBC (0-0); Polychromasia Present; Stomatocytes Present; Target Cells Present; Total Cells Counted 100
[2020-09-09 04:24] LABS: Basophils % (A) 0 %; Eosinophils # (A) 0.1 k/uL (0-0.7); Eosinophils % (A) 2 %; HGB 7.3 gm/dL (11.4-16.0); Hypochromasia Marked; Lymphocytes % (A) 23 %; MCH 24.3 pg (25.0-35.0); MCHC 30.5 g/dL (31.0-37.0); MCV 79.5 fL (80.0-100.0); Mean Platelet Volume 8.1; Monocytes # (A) 0.5 k/uL (0-1.0); Monocytes % (A) 11 %; Neutrophils # (A) 2.6 k/uL (1.3-7.7); Neutrophils % (A) 61 %; Platelet Count 105 k/uL (150-450); Poikilocytosis Marked; RBC 3.02 m/uL (3.80-5.40); RDW 15.8 % (11.5-15.5); WBC 4.3 k/uL (3.8-10.6)
[2020-09-09] MEDS: LEVOTHYROXINE 88 MCG TAB PO SCH (06:35)
[2020-09-09] MEDS: FORMOTEROL FUMARATE 20 MCG/2 ML NEBU INHALATION SCH ×2 (07:53→19:22)
[2020-09-09] MEDS: BUDESONIDE 0.5 MG/2 ML NEBU INHALATION SCH ×2 (07:53→19:22)
[2020-09-09] MEDS: PANTOPRAZOLE 40 MG TABLET PO SCH (08:10)
[2020-09-09] MEDS: ATORVASTATIN 20 MG TAB PO SCH (08:10)
[2020-09-09] MEDS: METOPROLOL SUCCINATE (ER) 25 MG TAB.ER.24H PO SCH (08:11)
[2020-09-09] MEDS: MONTELUKAST 10 MG TAB PO SCH (08:11)
[2020-09-09] MEDS: SERTRALINE 50 MG TAB PO SCH (08:11)
[2020-09-09] MEDS: DILTIAZEM CD 120 MG CAP.ER.24H PO SCH (08:11)
[2020-09-09 09:15] LABS: Anisocytosis Slight; Basophils % (A) 1 %; Eosinophils # (A) 0.1 k/uL (0-0.7); Eosinophils % (A) 3 %; HCT 24.8 % (34.0-46.0); HGB 7.6 gm/dL (11.4-16.0); Hypochromasia Marked; Lymphocytes # (A) 0.5 k/uL (1.0-4.8); Lymphocytes % (A) 15 %; MCH 24.6 pg (25.0-35.0); MCHC 30.6 g/dL (31.0-37.0); MCV 80.5 fL (80.0-100.0); Mean Platelet Volume 6.8; Monocytes # (A) 0.3 k/uL (0-1.0); Monocytes % (A) 9 %; Neutrophils # (A) 2.3 k/uL (1.3-7.7); Neutrophils % (A) 70 %; Platelet Count 99 k/uL (150-450); Poikilocytosis Marked; RBC 3.09 m/uL (3.80-5.40); RDW 16.2 % (11.5-15.5); WBC 3.3 k/uL (3.8-10.6)
[2020-09-09 10:54] LABS: Polychromasia Present
[2020-09-09 12:22] LABS: Prothrombin Time 10.1 sec (9.0-12.0)
[2020-09-09] MEDS: HYDROcodone/APAP 7.5-325MG 1 EACH TAB PO PRN (12:30)
[2020-09-09 12:43] LABS: Partial Thromboplastin Time 20.5 sec (22.0-30.0)
--- NOTE | 2020-09-09 16:07 | P.PN ---
Subjective Progress Note Date: 09/09/20 Patient is feeling a lot better today. She received 2 units of PRBC transfusion last night. She reported complete relief of the heaviness on her chest. Objective - Vital Signs Vital signs: Vital Signs Temp 98.1 F 09/09/20 14:59 Pulse 60 09/09/20 14:59 Resp 16 09/09/20 14:59 BP 113/57 09/09/20 14:59 Pulse Ox 98 09/09/20 14:59 Intake & Output 09/08/20 09/09/20 09/09/20 18:59 06:59 18:59 Intake Total 310 310 240 Output Total 500 Balance 310 -190 240 Weight 56.699 kg 56.699 kg Intake: Oral 240 Blood Product 310 310 Rc Pheresis 2 As3 Unit 310 [id number] Rc Pheresis 2 As3 Unit 0 310 [id number] Output: Urine 500 Other: Voiding Method Toilet # Voids 1 - Exam General: The patient is awake and alert, in no distress Eye: there is normal conjunctiva bilaterally. Neck: The neck is supple, there is no JVD. Cardiovascular: Normal S1-S2, no S3-S4, no murmurs. Respiratory: Lungs clear to auscultation bilaterally Gastrointestinal: Abdomen is soft, nontender Musculoskeletal: There is no pedal edema. Neurological:. Speech is normal. Skin: Skin is warm and dry - Labs CBC & Chem 7: 09/09/20 08:31 09/08/20 13:15 Labs: Abnormal Lab Results - Last 24 Hours (Table) 09/08/20 09/08/20 09/08/20 Range/Units 13:15 13:15 20:43 WBC 3.5 L (3.8-10.6) k/uL RBC 3.28 L (3.80-5.40) m/uL Hgb 7.9 L D (11.4-16.0) gm/dL Hct 26.6 L (34.0-46.0) % MCV (80.0-100.0) fL MCH 24.1 L (25.0-35.0) pg MCHC 29.8 L (31.0-37.0) g/dL RDW 16.0 H (11.5-15.5) % Plt Count 111 L (150-450) k/uL Lymphocytes # (1.0-4.8) k/uL APTT (22.0-30.0) sec Iron 33 L (50-170) ug/dL % Saturation 7.75 L (12.00-45.00) Vitamin B12 1782.0 H (200.0-944.0) pg/mL Crossmatch See Detail 09/09/20 09/09/20 09/09/20 Range/Units 02:48 08:31 11:09 WBC 3.3 L (3.8-10.6) k/uL RBC 3.02 L 3.09 L (3.80-5.40) m/uL Hgb 7.3 L 7.6 L (11.4-16.0) gm/dL Hct 24.0 L 24.8 L (34.0-46.0) % MCV 79.5 L (80.0-100.0) fL MCH 24.3 L 24.6 L (25.0-35.0) pg MCHC 30.5 L 30.6 L (31.0-37.0) g/dL RDW 15.8 H 16.2 H (11.5-15.5) % Plt Count 105 L 99 L (150-450) k/uL Lymphocytes # 0.5 L (1.0-4.8) k/uL APTT 20.5 L (22.0-30.0) sec Iron (50-170) ug/dL % Saturation (12.00-45.00) Vitamin B12 (200.0-944.0) pg/mL Crossmatch Assessment and Plan Assessment: This is a 85-year-old female with past medical history noted below who presented to the emergency room referred by her PCP for abnormal lab work. A shunt was scheduled for a hiatal hernia repair and had preoperative lab work done showing a hemoglobin of 5.5. Patient was also complaining of worsening weakness and shortness of breath. Patient was evaluated in the ER and admitted to the hospital for further management of her medical problems noted below. 1. Acute on chronic anemia: Status post 2 units of PRBC transfusion on presentation. Now hemoglobin stable around 7.6. 2. Iron deficiency anemia: No evidence of GI bleed. Hemoccult test in the ER was negative. Patient had a colonoscopy last year at [facility] that was reported normal. Given the severity of her anemia may warrant repeat upper and lower endoscopy. Gen. surgery consult for further evaluation. Hematology also consulted. Extensive anemia lab work was ordered and pending. 2. Chronic medical problems: hypertension, hypothyroidism, underlying COPD, hyperlipidemia: Continue home medications 3. DVT prophylaxis with SCD
[2020-09-09 18:32] LABS: African American GFR (CKD) 97.7 (60.0-200.0); Albumin/Globulin Ratio 1.82 (1.60-3.17); BUN/Creat Ratio 16.67 Ratio (12.00-20.00); Calcium 8.4 mg/dL (8.7-10.3); Globulin 2.2 g/dL (1.6-3.3); Non-African American GFR(CKD) 84.3 (60.0-200.0); Potassium 4.1 mmol/L (3.5-5.5); Total Bilirubin 0.5 mg/dL (0.3-1.2); Total Protein 6.2 g/dL (6.2-8.2)
[2020-09-09 18:52] LABS: Ferritin 10.1 ng/mL (10.0-291.0)
[2020-09-09] MEDS: traZODone HCL 50 MG TAB PO SCH (20:40)
--- NOTE | 2020-09-09 23:02 | P.CONS ---
History of Present Illness - Reason for Consult Consult date: 09/09/20 anemia Requesting physician: Domenico Khan - Chief Complaint SOB - History of Present Illness Mrs. Bundy is an 85 year old female who presented to [facility] at the direction of her physician for "abnormal labs". She was scheduled to have repair of hiatel hernia next week and went in for scheduled labs, she was notified of a hemoglobin of 5.5 and referred to be seen for further evaluation. She admits to symptomatic anemia evidenced by persistent and increased shortness of breath, especially with exertion, weakness, and fatigue. She denies any noticeable bleeding, and describes BMs as normal. She denies history of GI bleeding or anemia in the past. She denies history of PRBC transfusion in past. Hemoglobin in May was 11. Stool OB negative. Hematology was consulted for further evaluation for severe anemia. Review of Systems All systems: negative Constitutional: Reports as per HPI Past Medical History Past Medical History: Asthma, Hyperlipidemia, Hypertension, Thyroid Disorder Additional Past Medical History / Comment(s): shortness of breath, past vertigo hx. seasonal allergies. History of Any Multi-Drug Resistant Organisms: None Reported Past Surgical History: Back Surgery, Orthopedic Surgery Additional Past Surgical History / Comment(s): back sx X2, states has rods and screws, Left wrist sx, left elbow sx, left eye retina sx, cristin cataracts, spinal cord stimulator for pain placed june 2016. Past Anesthesia/Blood Transfusion Reactions: No Reported Reaction Past Psychological History: No Psychological Hx Reported Smoking Status: Never smoker Past Alcohol Use History: Occasional Additional Past Alcohol Use History / Comment(s): states smoked for 6 months age 19 Past Drug Use History: None Reported Medications and Allergies Home Medications Medication Instructions Recorded Confirmed Type Levothyroxine Sodium [Synthroid] 175 mcg PO DAILY 05/31/17 09/08/20 History Simvastatin 40 mg PO DAILY 05/31/17 09/08/20 History Albuterol Sulfate [Proair Hfa] 1 - 2 puff INHALATION RT-Q6H PRN 05/28/20 09/08/20 History HYDROcodone/APAP 7.5-325MG [[place] 1 tab PO Q6H PRN 05/28/20 09/08/20 History 7.5-325] Montelukast [Singulair] 10 mg PO DAILY 05/28/20 09/08/20 History Multivit with Calcium,Iron,Min 1 tab PO DAILY 05/28/20 09/08/20 History [Women's Multivitamin] Atorvastatin Calcium [Lipitor] 20 mg PO DAILY 09/08/20 09/08/20 History Budesonide [Pulmicort] 0.5 mg INHALATION RT-BID 09/08/20 09/08/20 History Diltiazem HCl [Diltiazem HCl 24Hr 120 mg PO DAILY 09/08/20 09/08/20 History ER] Formoterol Fumarate [Perforomist] 20 mcg INHALATION RT-BID 09/08/20 09/08/20 History Furosemide [Lasix] 20 mg PO DAILY PRN 09/08/20 09/08/20 History Metoprolol Succinate (ER) [Toprol 25 mg PO DAILY 09/08/20 09/08/20 History Xl] Omeprazole 40 mg PO DAILY 09/08/20 09/08/20 History Sertraline HCl [Zoloft] 50 mg PO DAILY 09/08/20 09/08/20 History traZODone HCL [Desyrel] 50 mg PO HS 09/08/20 09/08/20 History Allergies Allergy/AdvReac Type Severity Reaction Status Date / Time bee venom protein (honey bee) Allergy Anaphylaxis Verified 09/08/20 13:19 Sulfa (Sulfonamide Allergy Rash/Hives Verified 09/08/20 13:19 Antibiotics) Physical Exam Vitals: Vital Signs Temp Pulse Pulse Resp BP Pulse Ox 09/09/20 19:34 64 16 09/09/20 19:28 64 16 09/09/20 19:22 62 16 09/09/20 19:01 98.0 F 69 16 126/61 97 09/09/20 14:59 98.1 F 60 16 113/57 98 09/09/20 08:08 68 09/09/20 07:55 64 09/09/20 05:47 98.3 F 64 16 162/64 99 09/08/20 23:34 98.0 F 61 17 138/68 98 Intake and Output 09/09/20 09/09/20 09/10/20 14:59 22:59 06:59 Intake Total 240 920 Balance 240 920 Intake: Oral 240 320 Other 600 Other: Voiding Method Toilet - Constitutional General appearance: cooperative, no acute distress - EENT Eyes: EOMI, PERRLA ENT: hard of hearing, NA/AT, normal oropharynx - Neck Neck: normal ROM - Respiratory Respiratory: bilateral: diminished - Cardiovascular Rhythm: regular Heart sounds: normal: S1, S2 - Gastrointestinal General gastrointestinal: normal bowel sounds, soft, tenderness - Integumentary Integumentary: pale - Neurologic Neurologic: CNII-XII intact - Musculoskeletal Musculoskeletal: generalized weakness, strength equal bilaterally - Psychiatric Psychiatric: A&O x's 3, appropriate affect, intact judgment & insight Results CBC & Chem 7: 09/09/20 08:31 09/09/20 11:09 Labs: Abnormal Lab Results - Last 24 Hours (Table) 09/09/20 09/09/20 09/09/20 Range/Units 02:48 08:31 11:09 WBC 3.3 L (3.8-10.6) k/uL RBC 3.02 L 3.09 L (3.80-5.40) m/uL Hgb 7.3 L 7.6 L (11.4-16.0) gm/dL Hct 24.0 L 24.8 L (34.0-46.0) % MCV 79.5 L (80.0-100.0) fL MCH 24.3 L 24.6 L (25.0-35.0) pg MCHC 30.5 L 30.6 L (31.0-37.0) g/dL RDW 15.8 H 16.2 H (11.5-15.5) % Plt Count 105 L 99 L (150-450) k/uL Lymphocytes # 0.5 L (1.0-4.8) k/uL ESR (0-30) mm/Hr APTT 20.5 L (22.0-30.0) sec Calcium (8.7-10.3) mg/dL Total Protein (PEP) (6.2-8.2) g/dL 09/09/20 09/09/20 09/09/20 Range/Units 11:09 11:09 11:27 WBC (3.8-10.6) k/uL RBC (3.80-5.40) m/uL Hgb (11.4-16.0) gm/dL Hct (34.0-46.0) % MCV (80.0-100.0) fL MCH (25.0-35.0) pg MCHC (31.0-37.0) g/dL RDW (11.5-15.5) % Plt Count (150-450) k/uL Lymphocytes # (1.0-4.8) k/uL ESR 45 H (0-30) mm/Hr APTT (22.0-30.0) sec Calcium 8.4 L (8.7-10.3) mg/dL Total Protein (PEP) 6.0 L (6.2-8.2) g/dL Assessment and Plan (1) Microcytic hypochromic anemia Narrative/Plan: - Iron Saturation 7%, Awaiting pre-transfusion Ferritin - COnsult placed for Dr. Chicas for EGD/GI eval - Full anemia work-up ordered and further recs to follow. Current Visit: Yes Status: Acute Code(s): D50.9 - IRON DEFICIENCY ANEMIA, UNSPECIFIED SNOMED Code(s): 68999347 (2) Thrombocytopenia Narrative/Plan: - Mild - Likely secondary to severe anemia secondary to GI blood loss - Other causes will be further evaluated Current Visit: Yes Status: Acute Code(s): D69.6 - THROMBOCYTOPENIA, UNSPECIFIED SNOMED Code(s): 409398362 Plan: Parental Iron ordered Await further work-up Transfuse Hemoglobin less than 7 Physician Attest: I have completed the full history and physical and developed the complete impression and plan, agree with dictation, dictated as a scribe
[2020-09-10] MEDS: LEVOTHYROXINE 88 MCG TAB PO SCH (05:34)
[2020-09-10 07:16] LABS: Anisocytosis Slight; Basophils % (A) 0 %; Eosinophils # (A) 0.2 k/uL (0-0.7); Eosinophils % (A) 4 %; HGB 7.7 gm/dL (11.4-16.0); Hypochromasia Marked; Lymphocytes # (A) 0.6 k/uL (1.0-4.8); Lymphocytes % (A) 17 %; MCH 24.8 pg (25.0-35.0); MCHC 30.6 g/dL (31.0-37.0); MCV 81.1 fL (80.0-100.0); Mean Platelet Volume 7.5; Monocytes # (A) 0.4 k/uL (0-1.0); Monocytes % (A) 11 %; Neutrophils # (A) 2.5 k/uL (1.3-7.7); Neutrophils % (A) 65 %; Poikilocytosis Marked; RBC 3.08 m/uL (3.80-5.40); RDW 16.4 % (11.5-15.5); WBC 3.9 k/uL (3.8-10.6)
[2020-09-10] MEDS: BUDESONIDE 0.5 MG/2 ML NEBU INHALATION SCH ×2 (07:25→20:23)
[2020-09-10] MEDS: FORMOTEROL FUMARATE 20 MCG/2 ML NEBU INHALATION SCH ×2 (07:25→20:23)
[2020-09-10 07:33] LABS: Platelet Count 96 k/uL (150-450)
[2020-09-10] MEDS: SODIUM FERRIC GLUCONAT-SUCROSE 125 MG in SODIUM CHLORIDE 0.9% 100 ML IVPB SCH (08:41)
[2020-09-10] MEDS: DILTIAZEM CD 120 MG CAP.ER.24H PO SCH (10:21)
[2020-09-10] MEDS: PANTOPRAZOLE 40 MG TABLET PO SCH (10:21)
[2020-09-10] MEDS: ATORVASTATIN 20 MG TAB PO SCH (10:21)
[2020-09-10] MEDS: METOPROLOL SUCCINATE (ER) 25 MG TAB.ER.24H PO SCH (10:22)
[2020-09-10] MEDS: MONTELUKAST 10 MG TAB PO SCH (10:22)
[2020-09-10] MEDS: SERTRALINE 50 MG TAB PO SCH (10:22)
--- NOTE | 2020-09-10 13:00 | P.GSCN ---
History of Present Illness Consult date: 09/10/20 History of present illness: 85-year-old female presented to the emergency department with findings of abnormal lab work. She was obtaining laboratory work as a preoperative measure for repair of a hiatal hernia that she is scheduled for on September 22 out of [facility]. On this laboratory work, hemoglobin was noted to be 5.5. She states that over the past week she has been feeling fatigued. She denied any blood in her stool. She denies any hematemesis. She denies any nausea or vomiting. She denies any abdominal pain at this time. 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 She states that maybe 40 years ago she was also diagnosed with a gastric ulcer. Patient did have a Hemoccult test in the emergency department that was negative. She did receive 2 units of pack red blood cells and has responded appropriately with current hemoglobin of 7.7. Patient's last colonoscopy was within the last 18 months and was negative for any significant issue other than small polyps. She does not recall the last time she had an upper endoscopy. Hematology has been consultation and is doing a complete anemia workup and has requested upper endoscopy. Review of Systems All systems: negative Past Medical History Past Medical History: Asthma, Hyperlipidemia, Hypertension, Thyroid Disorder Additional Past Medical History / Comment(s): shortness of breath, past vertigo hx. seasonal allergies. History of Any Multi-Drug Resistant Organisms: None Reported Past Surgical History: Back Surgery, Orthopedic Surgery Additional Past Surgical History / Comment(s): back sx X2, states has rods and screws, Left wrist sx, left elbow sx, left eye retina sx, cristin cataracts, spinal cord stimulator for pain placed june 2016. Past Anesthesia/Blood Transfusion Reactions: No Reported Reaction Past Psychological History: No Psychological Hx Reported Smoking Status: Never smoker Past Alcohol Use History: Occasional Additional Past Alcohol Use History / Comment(s): states smoked for 6 months age 19 Past Drug Use History: None Reported Medications and Allergies Home Medications Medication Instructions Recorded Confirmed Type Levothyroxine Sodium [Synthroid] 175 mcg PO DAILY 05/31/17 09/08/20 History Simvastatin 40 mg PO DAILY 05/31/17 09/08/20 History Albuterol Sulfate [Proair Hfa] 1 - 2 puff INHALATION RT-Q6H PRN 05/28/20 09/08/20 History HYDROcodone/APAP 7.5-325MG [[place] 1 tab PO Q6H PRN 05/28/20 09/08/20 History 7.5-325] Montelukast [Singulair] 10 mg PO DAILY 05/28/20 09/08/20 History Multivit with Calcium,Iron,Min 1 tab PO DAILY 05/28/20 09/08/20 History [Women's Multivitamin] Atorvastatin Calcium [Lipitor] 20 mg PO DAILY 09/08/20 09/08/20 History Budesonide [Pulmicort] 0.5 mg INHALATION RT-BID 09/08/20 09/08/20 History Diltiazem HCl [Diltiazem HCl 24Hr 120 mg PO DAILY 09/08/20 09/08/20 History ER] Formoterol Fumarate [Perforomist] 20 mcg INHALATION RT-BID 09/08/20 09/08/20 H istory Furosemide [Lasix] 20 mg PO DAILY PRN 09/08/20 09/08/20 History Metoprolol Succinate (ER) [Toprol 25 mg PO DAILY 09/08/20 09/08/20 History Xl] Omeprazole 40 mg PO DAILY 09/08/20 09/08/20 History Sertraline HCl [Zoloft] 50 mg PO DAILY 09/08/20 09/08/20 History traZODone HCL [Desyrel] 50 mg PO HS 09/08/20 09/08/20 History Allergies Allergy/AdvReac Type Severity Reaction Status Date / Time bee venom protein (honey bee) Allergy Anaphylaxis Verified 09/08/20 13:19 Sulfa (Sulfonamide Allergy Rash/Hives Verified 09/08/20 13:19 Antibiotics) Surgical - Exam Osteopathic Statement: *. No significant issues noted on an osteopathic structural exam other than those noted in the History and Physical/Consult. Vital Signs Temp Pulse Resp BP Pulse Ox 98.6 F 104 H 18 128/71 97 09/08/20 12:36 09/08/20 12:36 09/08/20 12:36 09/08/20 12:36 09/08/20 12:36 - General well developed, well nourished - Eyes PERRL, normal ocular movement - ENT no hearing loss - Neck trachea midline - Respiratory No difficulty with respiration - Abdomen Soft, nontender, nondistended, no rebound, no guarding - Neurologic normal coordination, normal sensation - Psychiatric oriented to time, oriented to person, oriented to place Results - Labs 09/10/20 07:03 09/09/20 11:09 Abnormal Lab Results - Last 24 Hours (Table) 09/09/20 09/09/20 09/09/20 Range/Units 11:09 11:09 11:27 RBC (3.80-5.40) m/uL Hgb (11.4-16.0) gm/dL Hct (34.0-46.0) % MCH (25.0-35.0) pg MCHC (31.0-37.0) g/dL RDW (11.5-15.5) % Plt Count (150-450) k/uL Lymphocytes # (1.0-4.8) k/uL ESR 45 H (0-30) mm/Hr Calcium 8.4 L (8.7-10.3) mg/dL Total Protein (PEP) 6.0 L (6.2-8.2) g/dL Free [place] LC, Quant 2.10 H (0.33-1.94) mg/dL 09/10/20 Range/Units 07:03 RBC 3.08 L (3.80-5.40) m/uL Hgb 7.7 L (11.4-16.0) gm/dL Hct 25.0 L (34.0-46.0) % MCH 24.8 L (25.0-35.0) pg MCHC 30.6 L (31.0-37.0) g/dL RDW 16.4 H (11.5-15.5) % Plt Count 96 L (150-450) k/uL Lymphocytes # 0.6 L (1.0-4.8) k/uL ESR (0-30) mm/Hr Calcium (8.7-10.3) mg/dL Total Protein (PEP) (6.2-8.2) g/dL Free [place] LC, Quant (0.33-1.94) mg/dL Diabetes panel 09/09/20 Range/Units 11:09 Sodium 142 (135-145) mmol/L Potassium 4.1 (3.5-5.5) mmol/L Chloride 108 (96-109) mmol/L Carbon Dioxide 28.0 (21.6-31.8) mmol/L BUN 10.0 (9.0-27.0) mg/dL Creatinine 0.6 (0.6-1.5) mg/dL Glucose 110 (70-110) mg/dL Calcium 8.4 L (8.7-10.3) mg/dL AST 18 (13-35) U/L ALT 15 (8-44) U/L Alkaline Phosphatase 66 (41-126) U/L Total Protein 6.2 (6.2-8.2) g/dL Albumin 4.00 (3.80-4.90) g/dL Calcium panel 09/09/20 Range/Units 11:09 Calcium 8.4 L (8.7-10.3) mg/dL Albumin 4.00 (3.80-4.90) g/dL Pituitary panel 09/09/20 Range/Units 11:09 Sodium 142 (135-145) mmol/L Potassium 4.1 (3.5-5.5) mmol/L Chloride 108 (96-109) mmol/L Carbon Dioxide 28.0 (21.6-31.8) mmol/L BUN 10.0 (9.0-27.0) mg/dL Creatinine 0.6 (0.6-1.5) mg/dL Glucose 110 (70-110) mg/dL Calcium 8.4 L (8.7-10.3) mg/dL Adrenal panel 09/09/20 Range/Units 11:09 Sodium 142 (135-145) mmol/L Potassium 4.1 (3.5-5.5) mmol/L Chloride 108 (96-109) mmol/L Carbon Dioxide 28.0 (21.6-31.8) mmol/L BUN 10.0 (9.0-27.0) mg/dL Creatinine 0.6 (0.6-1.5) mg/dL Glucose 110 (70-110) mg/dL Calcium 8.4 L (8.7-10.3) mg/dL Total Bilirubin 0.5 (0.3-1.2) mg/dL AST 18 (13-35) U/L ALT 15 (8-44) U/L Alkaline Phosphatase 66 (41-126) U/L Total Protein 6.2 (6.2-8.2) g/dL Albumin 4.00 (3.80-4.90) g/dL Assessment and Plan Plan: 85-year-old female with severe anemia. No obvious active GI bleeding at this time. Patient has responded appropriately to 2 units of packed red blood cells. For further anemia workup, we will perform upper endoscopy is requested by hematology. This was explained to the patient and the patient is very agreeable.
[2020-09-10] MEDS ORDERED: IV FLUID CONTINUATION 1,000 ML IV ONE ×2 (13:26)
[2020-09-10] MEDS ORDERED: PROPOFOL 10 MG/ML 20 ML VIAL IV ONE (13:28)
[2020-09-10] MEDS ORDERED: LIDOCAINE 1% INJ 10MG/ML (20 ML MDV) ONE (13:28)
--- NOTE | 2020-09-10 13:43 | P.PCN ---
Date of Procedure: 09/10/20 Preoperative Diagnosis: Severe anemia Postoperative Diagnosis: Moderate hiatal hernia Gastritis Duodenitis Procedure(s) Performed: Esophagogastroduodenoscopy with biopsy Anesthesia: MAC Surgeon: Jeremiah Storey Pathology: other (Biopsies of esophagus, antrum, duodenal) Condition: stable Disposition: floor Indications for Procedure: 84-year-old female presented to the hospital with severe anemia. Plan is for upper endoscopy for further workup of the anemia. Risks, benefits and alternatives were provided to the patient. She did provide consent prior to attending the endoscopy suite. Operative Findings: Moderate sized hiatal hernia Gastritis Duodenitis Description of Procedure: The patient was brought into the endoscopy suite and placed in left lateral decubitus position. Adequate sedation was achieved using conscious sedation. A bite-block was placed in an endoscope was placed in the oropharynx and advanced under endoscopic visualization. The endoscope was advanced through the esophagus into the stomach, through the gastric antrum and into the pylorus. The third portion of the duodenum was visualized. The endoscope was then slowly withdrawn. The first portion of duodenum was noted to have mild inflammatory changes. Biopsies were taken. There was no active hemorrhage. The antrum was noted to have mild inflammatory changes. Biopsies were taken. There was no active hemorrhage or no obvious ulceration. The gastric body distended normally and the gastric folds appeared normal and flattened without insufflation. There is no evidence of any old blood or active hemorrhage. A retroflexed view of the fundus and GE junction revealed a moderate-sized hiatal hernia. No ulceration noted at the site. The esophagus appeared endoscopically normal. No ulceration was noted. Biopsies were taken. Excess air was removed and the scope was withdrawn and the procedure completed. The patient was then sent to PACU in stable condition.
[2020-09-10 14:53] LABS: Albumin 3.29 g/dL (3.80-4.90); Gamma Globulin 1.09 g/dL (0.70-1.50)
[2020-09-10] MEDS: HYDROcodone/APAP 7.5-325MG 1 EACH TAB PO PRN (15:36)
--- NOTE | 2020-09-10 17:12 | P.PN ---
Subjective No events overnight Objective - Vital Signs Vital signs: Vital Signs Temp 97.9 F 09/10/20 13:50 Pulse 66 09/10/20 15:50 Resp 16 09/10/20 07:54 BP 137/59 09/10/20 15:50 Pulse Ox 98 09/10/20 15:50 Intake & Output 09/09/20 09/10/20 09/10/20 18:59 06:59 18:59 Intake Total 1160 100 Balance 1160 100 Intake: IV 100 Oral 560 Other 600 Other: Voiding Method Toilet Toilet Toilet # Voids 1 1 - Exam General: The patient is awake and alert, in no distress Eye: there is normal conjunctiva bilaterally. Neck: The neck is supple, there is no JVD. Cardiovascular: Normal S1-S2, no S3-S4, no murmurs. Respiratory: Lungs clear to auscultation bilaterally Gastrointestinal: Abdomen is soft, nontender Musculoskeletal: There is no pedal edema. Neurological:. Speech is normal. Skin: Skin is warm and dry - Labs CBC & Chem 7: 09/10/20 07:03 09/09/20 11:09 Labs: Abnormal Lab Results - Last 24 Hours (Table) 09/09/20 09/09/20 09/09/20 Range/Units 11:09 11:09 11:27 RBC (3.80-5.40) m/uL Hgb (11.4-16.0) gm/dL Hct (34.0-46.0) % MCH (25.0-35.0) pg MCHC (31.0-37.0) g/dL RDW (11.5-15.5) % Plt Count (150-450) k/uL Lymphocytes # (1.0-4.8) k/uL ESR 45 H (0-30) mm/Hr Calcium 8.4 L (8.7-10.3) mg/dL Total Protein (PEP) 6.0 L (6.2-8.2) g/dL Albumin (PEP) 3.29 L (3.80-4.90) g/dL Free [place] LC, Quant 2.10 H (0.33-1.94) mg/dL 09/10/20 Range/Units 07:03 RBC 3.08 L (3.80-5.40) m/uL Hgb 7.7 L (11.4-16.0) gm/dL Hct 25.0 L (34.0-46.0) % MCH 24.8 L (25.0-35.0) pg MCHC 30.6 L (31.0-37.0) g/dL RDW 16.4 H (11.5-15.5) % Plt Count 96 L (150-450) k/uL Lymphocytes # 0.6 L (1.0-4.8) k/uL ESR (0-30) mm/Hr Calcium (8.7-10.3) mg/dL Total Protein (PEP) (6.2-8.2) g/dL Albumin (PEP) (3.80-4.90) g/dL Free [place] LC, Quant (0.33-1.94) mg/dL Assessment and Plan Assessment: This is a 85-year-old female with past medical history noted below who presented to the emergency room referred by her PCP for abnormal lab work. A shunt was scheduled for a hiatal hernia repair and had preoperative lab work done showing a hemoglobin of 5.5. Patient was also complaining of worsening weakness and shortness of breath. Patient was evaluated in the ER and admitted to the hospital for further management of her medical problems noted below. 1. Acute on chronic anemia: Status post 2 units of PRBC transfusion on presentation. Now hemoglobin stable around 7.6. 2. Iron deficiency anemia: No evidence of GI bleed. Hemoccult test in the ER was negative. Patient had a colonoscopy last year at [facility] that was reported normal. EGD during this admission showed evidence of gastritis and duodenitis with no source of bleeding. Hematology also consulted. Extensive anemia lab work was ordered and pending. 2. Chronic medical problems: hypertension, hypothyroidism, underlying COPD, hyperlipidemia: Continue home medications 3. DVT prophylaxis with SCD
--- NOTE | 2020-09-10 17:56 | P.PN ---
Subjective Progress Note Date: 09/10/20 The patient feels well. She denies any abdominal pain, nausea or vomiting. No obvious bleeding. Objective - Vital Signs Vital signs: Vital Signs Temp 97.9 F 09/10/20 13:50 Pulse 66 09/10/20 15:50 Resp 16 09/10/20 07:54 BP 137/59 09/10/20 15:50 Pulse Ox 98 09/10/20 15:50 Intake & Output 09/09/20 09/10/20 09/10/20 18:59 06:59 18:59 Intake Total 1160 100 Balance 1160 100 Intake: IV 100 Oral 560 Other 600 Other: Voiding Method Toilet Toilet Toilet # Voids 1 1 - Constitutional General appearance: Present: no acute distress - EENT Eyes: Present: EOMI, PERRLA ENT: Present: hearing grossly normal, normal oropharynx - Neck Thyroid: bilateral: normal size - Respiratory Respiratory: bilateral: CTA - Cardiovascular Rhythm: regular Heart sounds: normal: S1, S2 - Gastrointestinal General gastrointestinal: Present: normal bowel sounds, soft - Integumentary Integumentary: Present: normal - Neurologic Neurologic: Present: CNII-XII intact - Musculoskeletal Musculoskeletal: Present: generalized weakness, strength equal bilaterally - Psychiatric Psychiatric: Present: A&O x's 3, appropriate affect - Labs CBC & Chem 7: 09/10/20 07:03 09/09/20 11:09 Labs: Abnormal Lab Results - Last 24 Hours (Table) 09/09/20 09/09/20 09/09/20 Range/Units 11:09 11:09 11:27 RBC (3.80-5.40) m/uL Hgb (11.4-16.0) gm/dL Hct (34.0-46.0) % MCH (25.0-35.0) pg MCHC (31.0-37.0) g/dL RDW (11.5-15.5) % Plt Count (150-450) k/uL Lymphocytes # (1.0-4.8) k/uL ESR 45 H (0-30) mm/Hr Calcium 8.4 L (8.7-10.3) mg/dL Total Protein (PEP) 6.0 L (6.2-8.2) g/dL Albumin (PEP) 3.29 L (3.80-4.90) g/dL Free [place] LC, Quant 2.10 H (0.33-1.94) mg/dL 09/10/20 Range/Units 07:03 RBC 3.08 L (3.80-5.40) m/uL Hgb 7.7 L (11.4-16.0) gm/dL Hct 25.0 L (34.0-46.0) % MCH 24.8 L (25.0-35.0) pg MCHC 30.6 L (31.0-37.0) g/dL RDW 16.4 H (11.5-15.5) % Plt Count 96 L (150-450) k/uL Lymphocytes # 0.6 L (1.0-4.8) k/uL ESR (0-30) mm/Hr Calcium (8.7-10.3) mg/dL Total Protein (PEP) (6.2-8.2) g/dL Albumin (PEP) (3.80-4.90) g/dL Free [place] LC, Quant (0.33-1.94) mg/dL Assessment and Plan (1) Microcytic hypochromic anemia Narrative/Plan: The patient's labs confirm iron deficiency with markedly low saturation and ferritin only in the 10 range. This is as expected. Other anemia labs so far are negative. - This was discussed with the patient. IV iron supplementation has been ordered. EGD has been recommended and she is pending evaluation by the surgical service for the same. - EGD is negative, she can proceed with her proposed surgery once hemoglobin has stabilized in a satisfactory range Current Visit: Yes Status: Acute Code(s): D50.9 - IRON DEFICIENCY ANEMIA, UNSPECIFIED SNOMED Code(s): 23916368 (2) Thrombocytopenia Narrative/Plan: Platelets are stable in a safe range, that is 90 have an 100,000. Etiology not clear so far. Lab work up is in progress. No evidence of deficiency states noted. Autoimmune markers are also negative. Check imaging of liver for any occult liver disease/splenomegaly. Another possibility could be mild thrombo-cytopenia from early myelodysplasia in this age group, As well as a combination of consumption from blood loss and palliation from blood transfusion. If workup is negative for any specific pathology, it would be reasonable to follow this with observation as this level is quite safe. If the drop is due to consumption/dilution, spontaneous improvement would be expectd. Current Visit: Yes Status: Acute Code(s): D69.6 - THROMBOCYTOPENIA, UNSPECIFIED SNOMED Code(s): 669814254
[2020-09-10] MEDS: traZODone HCL 50 MG TAB PO SCH (22:28)
[2020-09-11 06:57] LABS: Anisocytosis Slight; Basophils % (A) 0 %; Eosinophils # (A) 0.2 k/uL (0-0.7); Eosinophils % (A) 5 %; HCT 24.7 % (34.0-46.0); HGB 7.4 gm/dL (11.4-16.0); Hypochromasia Marked; Lymphocytes # (A) 0.7 k/uL (1.0-4.8); Lymphocytes % (A) 19 %; MCH 24.6 pg (25.0-35.0); MCV 81.8 fL (80.0-100.0); Mean Platelet Volume 8.6; Monocytes # (A) 0.4 k/uL (0-1.0); Monocytes % (A) 11 %; Neutrophils # (A) 2.2 k/uL (1.3-7.7); Neutrophils % (A) 62 %; Platelet Count 106 k/uL (150-450); Poikilocytosis Marked; RBC 3.02 m/uL (3.80-5.40); RDW 16.8 % (11.5-15.5); WBC 3.6 k/uL (3.8-10.6)
[2020-09-11] MEDS: PANTOPRAZOLE 40 MG TABLET PO SCH (07:18)
[2020-09-11] MEDS: ATORVASTATIN 20 MG TAB PO SCH (07:18)
[2020-09-11] MEDS: METOPROLOL SUCCINATE (ER) 25 MG TAB.ER.24H PO SCH (07:19)
[2020-09-11] MEDS: LEVOTHYROXINE 88 MCG TAB PO SCH (07:19)
[2020-09-11] MEDS: SERTRALINE 50 MG TAB PO SCH (07:19)
[2020-09-11] MEDS: DILTIAZEM CD 120 MG CAP.ER.24H PO SCH (07:20)
[2020-09-11] MEDS: MONTELUKAST 10 MG TAB PO SCH (07:20)
[2020-09-11] MEDS: FORMOTEROL FUMARATE 20 MCG/2 ML NEBU INHALATION SCH (07:32)
[2020-09-11] MEDS: BUDESONIDE 0.5 MG/2 ML NEBU INHALATION SCH (07:33)
[2020-09-11 08:20] VITALS: BP 162/66; PULSE 66; RESP 18; TEMP 97.6
[2020-09-11] MEDS: SODIUM FERRIC GLUCONAT-SUCROSE 125 MG in SODIUM CHLORIDE 0.9% 100 ML IVPB SCH (09:45)
--- NOTE | 2020-09-11 11:07 | P.DS ---
Providers Date of admission: 09/08/20 14:31 Expected date of discharge: 09/11/20 Attending physician: Domenico Khan Consults: 09/08/20 14:30 Consult Physician Routine Consulting Provider: Bucky Martinez Consult Reason/Comments: anemia Do you want consulting provider notified?: Yes 09/09/20 12:16 Consult Physician Routine Consulting Provider: Jeremiah Storey Consult Reason/Comments: anemia Do you want consulting provider notified?: Yes Primary care physician: [facility] Course: This is a 85-year-old female with past medical history noted below who presented to the emergency room referred by her PCP for abnormal lab work. A shunt was scheduled for a hiatal hernia repair and had preoperative lab work done showing a hemoglobin of 5.5. Patient was also complaining of worsening weakness and shortness of breath. Patient was evaluated in the ER and admitted to the hospital for further management of her medical problems noted below. 1. Acute on chronic anemia: Status post 2 units of PRBC transfusion on presentation. Now hemoglobin stable around 7.5 2. Iron deficiency anemia: No evidence of GI bleed. Hemoccult test in the ER was negative. Patient had a colonoscopy last year at [facility] that was reported normal. EGD during this admission showed evidence of gastritis and duodenitis with no source of bleeding. Hematology also consulted. Extensive anemia lab work was ordered and pending. Patient given 2 doses of IV iron during this admission. Continue iron supplement 3 times a day. Follow-up with hematology next week. 2. Chronic medical problems: hypertension, hypothyroidism, underlying COPD, hyperlipidemia: Continue home medications Patient will be discharged home in a stable condition. For further details about this hospitalization please refer to the electronic chart. Time spent on discharge > 30 minutes including counseling and coordination of care Patient Condition at Discharge: Stable Plan - Discharge Summary Discharge Rx Participant: No New Discharge Prescriptions: New Ferrous Sulfate [Iron (65 MG Elemental)] 325 mg PO TID #90 tab Continue Levothyroxine Sodium [Synthroid] 175 mcg PO DAILY Albuterol Sulfate [Proair Hfa] 1 - 2 puff INHALATION RT-Q6H PRN PRN Reason: Shortness Of Breath Montelukast [Singulair] 10 mg PO DAILY Multivit with Calcium,Iron,Min [Women's Multivitamin] 1 tab PO DAILY HYDROcodone/APAP 7.5-325MG [[place] 7.5-325] 1 tab PO Q6H PRN PRN Reason: Pain traZODone HCL [Desyrel] 50 mg PO HS Sertraline HCl [Zoloft] 50 mg PO DAILY Omeprazole 40 mg PO DAILY Formoterol Fumarate [Perforomist] 20 mcg INHALATION RT-BID Metoprolol Succinate (ER) [Toprol XL] 25 mg PO DAILY Furosemide [Lasix] 20 mg PO DAILY PRN PRN Reason: Edema Diltiazem HCl [Diltiazem HCl 24Hr ER] 120 mg PO DAILY Budesonide [Pulmicort] 0.5 mg INHALATION RT-BID Atorvastatin Calcium [Lipitor] 20 mg PO DAILY Discontinued Simvastatin 40 mg PO DAILY Discharge Medication List Levothyroxine Sodium [Synthroid] 175 mcg PO DAILY 05/31/17 [History] Albuterol Sulfate [Proair Hfa] 1 - 2 puff INHALATION RT-Q6H PRN 05/28/20 [History] HYDROcodone/APAP 7.5-325MG [[place] 7.5-325] 1 tab PO Q6H PRN 05/28/20 [History] Montelukast [Singulair] 10 mg PO DAILY 05/28/20 [History] Multivit with Calcium,Iron,Min [Women's Multivitamin] 1 tab PO DAILY 05/28/20 [History] Atorvastatin Calcium [Lipitor] 20 mg PO DAILY 09/08/20 [History] Budesonide [Pulmicort] 0.5 mg INHALATION RT-BID 09/08/20 [History] Diltiazem HCl [Diltiazem HCl 24Hr ER] 120 mg PO DAILY 09/08/20 [History] Formoterol Fumarate [Perforomist] 20 mcg INHALATION RT-BID 09/08/20 [History] Furosemide [Lasix] 20 mg PO DAILY PRN 09/08/20 [History] Metoprolol Succinate (ER) [Toprol XL] 25 mg PO DAILY 09/08/20 [History] Omeprazole 40 mg PO DAILY 09/08/20 [History] Sertraline HCl [Zoloft] 50 mg PO DAILY 09/08/20 [History] traZODone HCL [Desyrel] 50 mg PO HS 09/08/20 [History] Ferrous Sulfate [Iron (65 MG Elemental)] 325 mg PO TID #90 tab 09/11/20 [Rx] Follow up Appointment(s)/Referral(s): Bucky Martinez MD [STAFF PHYSICIAN] - 3 Days Joana Barrow MD [Primary Care Provider] - 1 Week Discharge Disposition: HOME SELF-CARE
[2020-09-11] MEDS: HYDROcodone/APAP 7.5-325MG 1 EACH TAB PO PRN (11:26)
--- NOTE | 2020-09-11 15:54 | P.PN ---
Subjective Progress Note Date: 09/11/20 Principal diagnosis: bicytopenia Patient is stable and planning for discharge, although etiology of thrombocytopenia remains unclear and hemoglobin still in low 7s. Will have her follow-up CBC next week and for Ultrasound abdomen liver/spleen. Objective - Vital Signs Vital signs: Vital Signs Temp 97.6 F 09/11/20 08:00 Pulse 66 09/11/20 08:00 Resp 18 09/11/20 08:00 BP 162/66 09/11/20 08:00 Pulse Ox 96 09/11/20 08:00 Intake & Output 09/10/20 09/11/20 09/11/20 18:59 06:59 18:59 Intake Total 100 240 Output Total 500 Balance 100 240 -500 Intake: IV 100 Oral 240 Output: Urine 500 Other: Voiding Method Toilet Toilet Toilet # Voids 1 1 - Exam - Constitutional General appearance: Present: no acute distress - EENT Eyes: Present: EOMI, PERRLA ENT: Present: hearing grossly normal, normal oropharynx - Neck Thyroid: bilateral: normal size - Respiratory Respiratory: bilateral: CTA - Cardiovascular Rhythm: regular Heart sounds: normal: S1, S2 - Gastrointestinal General gastrointestinal: Present: normal bowel sounds, soft - Integumentary Integumentary: Present: normal - Neurologic Neurologic: Present: CNII-XII intact - Musculoskeletal Musculoskeletal: Present: generalized weakness, strength equal bilaterally - Psychiatric Psychiatric: Present: A&O x's 3, appropriate affect - Labs CBC & Chem 7: 09/11/20 06:01 09/09/20 11:09 Labs: Abnormal Lab Results - Last 24 Hours (Table) 09/11/20 Range/Units 06:01 WBC 3.6 L (3.8-10.6) k/uL RBC 3.02 L (3.80-5.40) m/uL Hgb 7.4 L (11.4-16.0) gm/dL Hct 24.7 L (34.0-46.0) % MCH 24.6 L (25.0-35.0) pg MCHC 30.0 L (31.0-37.0) g/dL RDW 16.8 H (11.5-15.5) % Plt Count 106 L (150-450) k/uL Lymphocytes # 0.7 L (1.0-4.8) k/uL Assessment and Plan (1) Microcytic hypochromic anemia Narrative/Plan: - Iron Saturation 7%, Awaiting pre-transfusion Ferritin - Status Post EGD, no active bleeding - Plan CBC next week in office Status: Acute Code(s): D50.9 - IRON DEFICIENCY ANEMIA, UNSPECIFIED SNOMED Code(s): 34107468 (2) Thrombocytopenia Narrative/Plan: - Mild - Likely secondary to severe anemia secondary to GI blood loss - Other causes will be further evaluated - Will have patient further assessed with ultrasound liver and spleen as outpatient Status: Acute Code(s): D69.6 - THROMBOCYTOPENIA, UNSPECIFIED SNOMED Code(s): 195534867 Plan: Status POst 3 doses IV Iron inpatient Will continue with outpatient [facility] Ultrasound abdomen outpatient CBC and visit W[employer] FIL[employer] TECHNICIAN next week and Dr. Martinez 3 weeks
== END 2020-09-11 14:11 | disposition home or self-care (01) | DRG 812 ==
LOC: EC 12:35 → 5NMEDONC 14:31
PROVIDERS: ADMIT Internal Medicine; ATTEND Internal Medicine
PROC: 0DB78ZX Excision of Stomach, Pylorus, Via Natural or Artificial Opening Endoscopic, Diagnostic (ICD-10-PCS; principal; 2020-09-10 08:30)
PROC: 30233N1 Transfusion of Nonautologous Red Blood Cells into Peripheral Vein, Percutaneous Approach (ICD-10-PCS; principal; 2020-09-10 08:30)
PROC: 0DB98ZX Excision of Duodenum, Via Natural or Artificial Opening Endoscopic, Diagnostic (ICD-10-PCS; principal; 2020-09-10 08:30)
DX: D50.0 Iron deficiency anemia secondary to blood loss (chronic) (principal); D69.6 Thrombocytopenia, unspecified; E03.9 Hypothyroidism, unspecified; E78.5 Hyperlipidemia, unspecified; I10 Essential (primary) hypertension; J44.9 Chronic obstructive pulmonary disease, unspecified; K29.80 Duodenitis without bleeding; K29.70 Gastritis, unspecified, without bleeding; K44.9 Diaphragmatic hernia without obstruction or gangrene; Z79.890 Hormone replacement therapy; Z79.899 Other long term (current) drug therapy; Z87.891 Personal history of nicotine dependence; Z88.2 Allergy status to sulfonamides; Z91.030 Bee allergy status; Z98.42 Cataract extraction status, left eye; Z98.41 Cataract extraction status, right eye; Z96.82 Presence of neurostimulator
CPT/HCPCS: 36415; 36430; 43239; 80048; 80053; 82272; 82607; 82728; 82746; 82784; 83540; 83550; 83615; 83735; 83883; 84165; 84484; 85025; 85045; 85610; 85652; 85730; 86038; 86334; 86431; 86850; 86900; 86901; 86920; 88305; 94640; 94760; 96361; 96374; 96375; 99291

== ENCOUNTER → 2020-09-08 | Outpatient (CLI) | payer MEDICARE, BC ==
[2020-09-08 10:39] LABS: Anisocytosis Slight; Basophils % (A) 1 %; Eosinophils # (A) 0.1 k/uL (0-0.7); Eosinophils % (A) 3 %; Hypochromasia Marked; Lymphocytes # (A) 0.6 k/uL (1.0-4.8); Lymphocytes % (A) 22 %; MCH 22.3 pg (25.0-35.0); MCHC 28.4 g/dL (31.0-37.0); MCV 78.4 fL (80.0-100.0); Mean Platelet Volume 8.1; Microcytosis Slight; Monocytes # (A) 0.3 k/uL (0-1.0); Monocytes % (A) 11 %; Neutrophils # (A) 1.7 k/uL (1.3-7.7); Neutrophils % (A) 60 %; Platelet Count 125 k/uL (150-450); Poikilocytosis Slight; RBC 2.48 m/uL (3.80-5.40); RDW 16.2 % (11.5-15.5); WBC 2.8 k/uL (3.8-10.6)
[2020-09-08 11:15] LABS: HGB 5.5 gm/dL (11.4-16.0)
[2020-09-08 11:16] LABS: HCT 19.5 % (34.0-46.0)
[2020-09-08 15:29] LABS: African American GFR (CKD) 92.9 (60.0-200.0); Anion Gap 7.2 mmol/L (4.00-12.00); BUN/Creat Ratio 18.57 Ratio (12.00-20.00); Calcium 8.7 mg/dL (8.7-10.3); Carbon Dioxide 24.8 mmol/L (21.6-31.8); Non-African American GFR(CKD) 80.1 (60.0-200.0); Potassium 4.3 mmol/L (3.5-5.5)
[2020-09-08 17:31] LABS: INR 0.97 (0.90-1.11); Partial Thromboplastin Time 21.4 sec (23.5-31.0); Prothrombin Time 10.5 sec (9.9-11.9)
== END | disposition home or self-care (01) ==
LOC: LABWHC1 09:25
PROVIDERS: ATTEND Surgery
DX: K44.9 Diaphragmatic hernia without obstruction or gangrene (principal)
CPT/HCPCS: 36415; 80048; 85025; 85610; 85730

== ENCOUNTER → 2020-09-16 | Outpatient (CLI) | payer MEDICARE, BC | END | disposition home or self-care (01) | LOC: LABWHC1 12:35 | PROVIDERS: ATTEND Surgery | DX: Z20.828 Contact with and (suspected) exposure to other viral communicable diseases (principal) | CPT/HCPCS: U0003; C9803 ==

== ENCOUNTER → 2020-09-28 | Outpatient (CLI) | payer MEDICARE, BC ==
[2020-09-28 08:47] LABS: Anisocytosis Moderate; HCT 35.8 % (34.0-46.0); Hypochromasia Marked; MCH 28.2 pg (25.0-35.0); MCHC 30.5 g/dL (31.0-37.0); Macrocytosis Slight; Mean Platelet Volume 7.3; Platelet Count 121 k/uL (150-450); Poikilocytosis Slight; RBC 3.87 m/uL (3.80-5.40); RDW 21.7 % (11.5-15.5); WBC 6.1 k/uL (3.8-10.6)
[2020-09-28 08:49] LABS: HGB 10.9 gm/dL (11.4-16.0); MCV 92.5 fL (80.0-100.0)
[2020-09-28 11:50] LABS: African American GFR (CKD) 103.7 (60.0-200.0); Albumin 3.7 g/dL (3.80-4.90); Albumin/Globulin Ratio 1.54 (1.60-3.17); Anion Gap 4.6 mmol/L (4.00-12.00); Carbon Dioxide 31.4 mmol/L (21.6-31.8); Globulin 2.4 g/dL (1.6-3.3); Non-African American GFR(CKD) 89.5 (60.0-200.0); Potassium 4.3 mmol/L (3.5-5.5); Total Bilirubin 0.4 mg/dL (0.2-1.2); Total Protein 6.1 g/dL (6.2-8.2)
== END | disposition home or self-care (01) ==
LOC: LABWHC1 07:31
PROVIDERS: ATTEND Student in an Organized Health Care Education/Training Program
DX: D50.9 Iron deficiency anemia, unspecified (principal); K92.2 Gastrointestinal hemorrhage, unspecified
CPT/HCPCS: 36415; 80053; 85027

== ENCOUNTER → 2020-10-16 | Outpatient (CLI) | payer MEDICARE, BC | END | disposition home or self-care (01) | LOC: LABWHC1 09:21 | PROVIDERS: ATTEND Surgery | DX: Z01.812 Encounter for preprocedural laboratory examination (principal); Z20.822 Contact with and (suspected) exposure to COVID-19 | CPT/HCPCS: U0003; C9803; U0005 ==

== ENCOUNTER → 2021-01-11 | Outpatient (CLI) | payer MEDICARE, BC ==
--- NOTE | 2021-01-11 10:27 | US ---
EXAMINATION TYPE: US gallbladder DATE OF EXAM: 01/11/2021 COMPARISON: CT 08/26/2020 CLINICAL HISTORY: 85-year-old female K80.50 Choledocholithiasis. Patient stated had CBD stone removed ; hiatal hernia repair. TECHNIQUE: Multiple sonographic images of the right upper quadrant are obtained. FINDINGS: EXAM MEASUREMENTS: Liver Length: 12.1 cm Gallbladder Wall: 0.2 cm CBD: 1.1 cm near head of pancreas Right Kidney: 9.0 x 5.5 x 4.1 cm Pancreas: Only a small portion of the pancreatic body could be visualized. Remainder is obscured by bowel gas shadowing. Prominent pancreatic duct noted = 3.6mm Liver: No focal lesion seen. Gallbladder: No abnormal distention, wall thickening, pericholecystic fluid, shadowing calculi. Evidence for sonographic Menendez's sign: no CBD: Dilated. Right Kidney: No hydronephrosis. IMPRESSION: 1. Dilated bile duct (1.1 cm) and mild dilatation of the main pancreatic duct (3.6 mm) as well may be a consequence of patient's previous choledocholithiasis. Correlate with current alkaline phosphatase and bilirubin levels. Consider correlation with amylase and lipase levels as well. If laboratory [place] ues are normal, 3 month follow-up ultrasound can reassess these ducts. 2. Suboptimal visualization of the pancreas.
== END | disposition home or self-care (01) ==
LOC: RADUSWWP 09:28
PROVIDERS: ATTEND Surgery
DX: K80.50 Calculus of bile duct without cholangitis or cholecystitis without obstruction (principal); K86.89 Other specified diseases of pancreas
CPT/HCPCS: 76705

== ENCOUNTER → 2021-05-17 | Outpatient (CLI) | payer MEDICARE, BC ==
--- NOTE | 2021-05-17 09:09 | US ---
EXAMINATION TYPE: US gallbladder DATE OF EXAM: 05/17/2021 COMPARISON: US 2020 CLINICAL HISTORY: K80.50 Calculus of bile duct without cholangitis. Follow up, patient states stone w as removed EXAM MEASUREMENTS: Liver Length: 13.3 cm Gallbladder Wall: 0.2 cm CBD: 1.1 cm, normal up to 0.8 cm. Right Kidney: 9.4 x 4.3 x 4.0 cm Pancreas: obscured by overlying midline bowel gas Liver: wnl Gallbladder: wnl Evidence for sonographic Menendez's sign: no CBD: dilated, obscured at head of pancreas by overlying midline bowel gas Right Kidney: wnl IMPRESSION: 1. Slight prominence of the common bile duct. 2. Acute right upper quadrant ultrasound findings noted otherwise over the
== END | disposition home or self-care (01) ==
LOC: RADUSWWP 08:11
PROVIDERS: ATTEND Surgery
DX: K80.70 Calculus of gallbladder and bile duct without cholecystitis without obstruction (principal)
CPT/HCPCS: 76705

== ENCOUNTER → 2021-07-21 | Outpatient (CLI) | payer MEDICARE, BC ==
[2021-07-21 09:25] LABS: African American GFR (CKD) >90 (>60 ml/min/1.73 sqM); Blood Urea Nitrogen 17 mg/dL (7-17); Non-African American GFR(CKD) 80 (>60 ml/min/1.73 sqM)
--- NOTE | 2021-07-21 12:50 | CT ---
CT pancreas HISTORY: K [age], abnormal ultrasound, gallstones Helical [address] was performed through the pancreas during dynamic administration of 100 cc Isovue-3 00 IV. Automated exposure control for dose reduction. Correlation CT scan 08/26/2020, ultrasound 05/17/2021 The distal common bile duct shows a focus of hypoattenuation distally measuring approximately 4 to 5 mm consistent with choledocholithiasis, present on prior CT, common bile duct is dilated as is the pa ncreatic duct, intrahepatic biliary ducts. Liver shows low attenuation focus within the left lobe audelia suring 12 mm, likely a cyst. Gallbladder shows no stone. The spleen, adrenal glands, kidneys are with in normal limits. Small cyst associated with the left kidney. Postop changes of the spine, some streak artifact over portions of the exam. There is a spinal curvat ure present. Hiatal hernia is noted incidentally. Lung bases show no effusion. Aorta shows some ather omatous change. IMPRESSION: Choledocholithiasis. Dilated intra and extrahepatic biliary ducts, pancreatic duct
== END | disposition home or self-care (01) ==
LOC: RADCTMAIN 08:47
PROVIDERS: ATTEND Surgery
DX: K80.70 Calculus of gallbladder and bile duct without cholecystitis without obstruction (principal); K44.9 Diaphragmatic hernia without obstruction or gangrene
CPT/HCPCS: 82565; 84520; 36415; 74160; Q9967

== ENCOUNTER → 2022-03-14 | Outpatient (CLI) | payer MEDICARE, BC ==
--- NOTE | 2022-03-14 15:32 | CT ---
EXAMINATION TYPE: CT lumbar spine wo con DATE OF EXAM: 03/14/2022 1:11 PM COMPARISON: CT dated 07/21/2021 HISTORY: Spondylosis w/o myelopathy, low back pain. CT DLP: 501.10 mGycm Automated exposure control for dose reduction was used. Technique: Unenhanced CT of the lumbar spine was performed. Bone and soft tissue window settings are submitted as well as coronal and sagittal reconstructions. FINDINGS: Severe diffuse osteopenia. Lumbarized S1. Previous L2, L3 and L4 fixation using 2 rods and 6 screws. No evidence of prosthesis break or displacement. Mild dextroscoliosis of the lower lumbar spine. No definite vertebral body collapse or acute displaced fracture. Subtle nondisplaced fracture cannot be excluded. Degenerative changes of the lower thoracic and lumbar spine. Multilevel disc degeneratio n is noted. L1-L2: Small bilateral focal foraminal disc protrusions, causing no significant central spinal canal stenosis or neuroforaminal stenosis. L2-L3: Diffuse posterior disc bulge without gross central spinal canal stenosis or neuroforaminal lynn nosis yet suboptimally assessed by artifacts. L3-L4: Diffuse posterior disc bulge with posterior osteophytosis, causing no gross central spinal can al stenosis or neuroforaminal stenosis yet suboptimally assessed by artifacts. L4-L5: Degenerated disc with disc calcification and mild diffuse posterior disc bulge, causing no sig nificant central spinal canal stenosis or significant neuroforaminal stenosis. L5-S1: Degenerated disc with disc calcification, causing no significant central spinal canal stenosis and suspected right neuroforaminal stenosis, slightly compressing the right L5 nerve root. Scattered arterial atherosclerotic calcifications. Dilated CBD, appreciated previously. No paraspinal lesion. IMPRESSION: Severe osteopenia. Lumbarized S1. Postsurgical changes and degenerative changes as detailed above. Fu rther MRI assessment can be considered if clinically required.
== END | disposition home or self-care (01) ==
LOC: RADCTMAIN 12:48
PROVIDERS: ATTEND Physical Medicine & Rehabilitation
DX: M47.816 Spondylosis without myelopathy or radiculopathy, lumbar region (principal); M85.88 Other specified disorders of bone density and structure, other site; M51.37 Other intervertebral disc degeneration, lumbosacral region
CPT/HCPCS: 72131

== ENCOUNTER 2022-03-31 11:08 | Emergency (ER) | payer MEDICARE, BC ==
[2022-03-31 11:24] VITALS: RESP 18; TEMP 97.7
--- NOTE | 2022-03-31 12:23 | XR ---
EXAMINATION TYPE: XR chest 2V DATE OF EXAM: 03/31/2022 COMPARISON: 02/11/2019 INDICATION: Productive cough,COVID (+) TECHNIQUE: Frontal and lateral views of the chest are obtained. FINDINGS: The heart size is normal. The pulmonary vasculature is normal. The lungs are clear. There is a focal eventration of the right diaphragm present previously. Stimula tor leads are within the mid thoracic region. IMPRESSION: 1. No acute pulmonary process.
[2022-03-31] MEDS ORDERED: BEBTELOVIMAB (EUA) 175 MG/2 ML VIAL IV ONE (13:15)
[2022-03-31 14:55] VITALS: BP 131/84; PULSE 78
--- NOTE | 2022-03-31 15:00 | ED ---
General Adult HPI - General Chief complaint: Recheck/Abnormal Lab/Rx Stated complaint: covid + Time Seen by Provider: 03/31/22 11:33 Source: patient Mode of arrival: ambulatory Limitations: no limitations - History of Present Illness Initial comments: Patient is an 86-year-old female who tested positive for Covid at home today. She has been experiencing body aches, congestion, productive cough for the last 2 days. She has a history of asthma and hypertension. She is vaccinated and has been boosted. She denies any chest pain, shortness of breath, fever, chills, nausea, vomiting, hemoptysis, abdominal pain, diarrhea, hematochezia, melena, dysuria, hematuria, urgency, frequency, dysphasia, ear pain, sore throat, , palpitations, weakness. - Related Data Home Medications Medication Instructions Recorded Confirmed Levothyroxine Sodium [Synthroid] 175 mcg PO DAILY 05/31/17 09/08/20 Albuterol Sulfate [Proair Hfa] 1 - 2 puff INHALATION RT-Q6H PRN 05/28/20 09/08/20 HYDROcodone/APAP 7.5-325MG [[place] 1 tab PO Q6H PRN 05/28/20 09/08/20 7.5-325] Montelukast [Singulair] 10 mg PO DAILY 05/28/20 09/08/20 Multivit with Calcium,Iron,Min 1 tab PO DAILY 05/28/20 09/08/20 [Women's Multivitamin] Atorvastatin Calcium [Lipitor] 20 mg PO DAILY 09/08/20 09/08/20 Budesonide [Pulmicort] 0.5 mg INHALATION RT-BID 09/08/20 09/08/20 Formoterol Fumarate [Perforomist] 20 mcg INHALATION RT-BID 09/08/20 09/08/20 Furosemide [Lasix] 20 mg PO DAILY PRN 09/08/20 09/08/20 Metoprolol Succinate (ER) [Toprol 25 mg PO DAILY 09/08/20 09/08/20 XL] Omeprazole 40 mg PO DAILY 09/08/20 09/08/20 Sertraline HCl [Zoloft] 50 mg PO DAILY 09/08/20 09/08/20 dilTIAZem HCL [dilTIAZem HCL 24Hr 120 mg PO DAILY 09/08/20 09/08/20 ER] traZODone HCL [Desyrel] 50 mg PO HS 09/08/20 09/08/20 Previous Rx's Medication Instructions Recorded Ferrous Sulfate [Iron (65 MG 325 mg PO TID #90 tab 09/11/20 Elemental)] Allergies Allergy/AdvReac Type Severity Reaction Status Date / Time bee venom protein (honey bee) Allergy Anaphylaxis Verified 03/31/22 11:24 Sulfa (Sulfonamide Allergy Rash/Hives Verified 03/31/22 11:24 Antibiotics) Review of Systems ROS Statement: Those systems with pertinent positive or pertinent negative responses have been documented in the HPI. ROS Other: All systems not noted in ROS Statement are negative. Past Medical History Past Medical History: Asthma, Hyperlipidemia, Hypertension, Thyroid Disorder Additional Past Medical History / Comment(s): covid, shortness of breath, past vertigo hx. seasonal allergies. History of Any Multi-Drug Resistant Organisms: None Reported Past Surgical History: Back Surgery, Orthopedic Surgery Additional Past Surgical History / Comment(s): back sx X2, states has rods and screws, Left wrist sx, left elbow sx, left eye retina sx, cristin cataracts, spinal cord stimulator for pain placed june 2016. Past Anesthesia/Blood Transfusion Reactions: No Reported Reaction Past Psychological History: No Psychological Hx Reported Smoking Status: Never smoker Past Alcohol Use History: Occasional Past Drug Use History: None Reported General Exam Limitations: no limitations General appearance: alert, in no apparent distress Head exam: Present: atraumatic, normocephalic, normal inspection Eye exam: Present: normal appearance, EOMI. Absent: scleral icterus ENT exam: Present: normal exam, mucous membranes moist Neck exam: Present: normal inspection, lymphadenopathy Respiratory exam: Present: normal lung sounds bilaterally. Absent: respiratory distress, wheezes, rales, rhonchi, stridor Cardiovascular Exam: Present: regular rate, normal rhythm, normal heart sounds. Absent: systolic murmur, diastolic murmur, rubs, gallop, clicks Neurological exam: Present: alert, oriented X3, CN II-XII intact Psychiatric exam: Present: normal affect, normal mood Skin exam: Present: warm, dry, intact, normal color. Absent: rash Course Vital Signs 03/31/22 03/31/22 03/31/22 11:22 14:07 14:54 Temperature 97.7 F Pulse Rate 72 76 78 Respiratory 18 18 18 Rate Blood Pressure 136/82 131/84 O2 Sat by Pulse 95 97 98 Oximetry Medical Decision Making - Medical Decision Making Patient is an 86-year-old female who tested positive for Covid. Symptoms include productive cough, body aches, congestion. She is fully vaccinated and boosted. She has had symptoms for 2 days. On examination heart and lungs are clear to auscultation. Patient coughed a few times during our exam. She is nontoxic appearing, has been able to walk about the room without difficulty, not tachycardic or hypoxic. Chest x-ray shows no acute process. Covid test is positive. Patient received monoclonal antibodies and was observed for one hour afterwards with no reaction. She appears stable for discharge with outpatient follow-up at this time. Follow-up with PCP. Educated on quarantine guidelines and supportive treatment. Report back to ER with any new or worsening symptoms. I discussed return parameters and answered all questions. Patient conveyed verbal understanding and agreed to the plan. My attending is Dr. Caraballo. - Lab Data Lab Results 03/31/22 Range/Units 12:09 Coronavirus (PCR) Detected A (Not Detectd) Disposition Clinical Impression: COVID Disposition: HOME SELF-CARE Condition: Good Instructions (If sedation given, give patient instructions): COVID-19 (Coronavirus Disease 2019) (ED), How to Recover from COVID-19 at Home (ED) Additional Instructions: Quarantine for 5 days starting from the first day of symptoms, if symptom-free by day 5 this is followed by 5 days of strict mask usage when in public. Use Motrin and Tylenol as needed for fever and pain control. Report back to ER with any new or worsening symptoms. Follow-up with PCP. Is patient prescribed a controlled substance at d/c from ED?: No Referrals: Joana Barrow MD [Primary Care Provider] - 04/07/22 Time of Disposition: 15:00
== END 2022-03-31 15:10 | disposition home or self-care (01) ==
LOC: EC 11:08
DX: U07.1 COVID-19 (principal); J45.909 Unspecified asthma, uncomplicated; E78.5 Hyperlipidemia, unspecified; I10 Essential (primary) hypertension; E07.9 Disorder of thyroid, unspecified; Z88.2 Allergy status to sulfonamides; Z91.030 Bee allergy status; Z79.899 Other long term (current) drug therapy; Z79.51 Long term (current) use of inhaled steroids; Z79.890 Hormone replacement therapy
CPT/HCPCS: 87635; 71046; 99283; Q0222

== ENCOUNTER → 2022-09-06 | Outpatient (CLI) | payer MEDICARE, BC ==
--- NOTE | 2022-09-06 18:27 | BD ---
EXAMINATION TYPE: Axial Bone Density DATE OF EXAM: 09/06/2022 COMPARISON: 10/25/2019 CLINICAL HISTORY: 87 years old Female. ICD-10 CODE: M81.0 OSTEOPOROSIS Height: 59 Weight: 128 FRAX RISK QUESTIONS: Family History (Parent hip fracture): NO History of Fracture in Adulthood: YES Secondary Osteoporosis: NO Rheumatoid Arthritis: NO RISK FACTORS HISTORY OF: History of Wrist Fracture: YES BOTH When: 1961 Surgery to Wrist (left): YES When: 1961 Surgery to Spine YES, has pins and rods When: 1976, 1981, 1986 Family History of Osteoporosis: YES Active: YES Diet low in dairy products/other sources of calcium: YES Postmenopausal woman: YES Lost more than 2 inches in height since high school: YES Frequent falls: NO Poor Health: NO Hyperparathyroidism: NO Adrenal Insufficiency: NO MEDICATIONS: Prednisone or other steroids: NO Thyroid Medications: YES Which medication: Levothyroxine How Lon+ YEARS Osteoporosis Medications: PRIOR Which medication: Fosamax How Long: BETWEEN AGES 30-50 Additional Medications: YES PAIN MEDS, HBP, THYOID MEDS, CHOLESTEROL, ANXIETY, ASTHMA, PRESER EYE , SLEEPING PILL, EPIPEN, ACID REFLUX Bone mineral density about the R hip (g/cm2): 0.739 Bone mineral density about the L hip (g/cm2): 0.766 T Score values are as follows: -----R Neck: -2.4 -----L Neck: -2.6 -----R Total: -2.1 -----L Total: -1.9 Bone mineral density has: Decreased -1.4% since study of: 10/25/2019 FRAX%s: The graph provided illustrates a 8.7% chance for a major osteoporotic fx and a 3.4% chance fo r the hips probability for fx in 10 years time. IMPRESSION: Osteoporosis (T Score less than -2.5). There is increased fracture risk and therapy is usually indicated based on age. Re-Screen 1-2 years. NOTE: T-SCORE=SD OF THE YOUNG ADULT MEAN.
== END | disposition home or self-care (01) ==
LOC: RADBDWWP 07:56
PROVIDERS: ATTEND Family Medicine
DX: M81.0 Age-related osteoporosis without current pathological fracture (principal); Z79.52 Long term (current) use of systemic steroids
CPT/HCPCS: 77080

== ENCOUNTER → 2022-09-27 | Outpatient (CLI) | payer MEDICARE, BC ==
--- NOTE | 2022-09-27 11:55 | NM ---
EXAMINATION TYPE: NM gastric emptying static DATE OF EXAM: 09/27/2022 COMPARISON: NONE HISTORY: R 68.81 Following administration of 2.0 mCi Tc 99m Sulfur Colloid with 3.5 OUNCES EGGS, 7 OUNCES WATER, proje ction images of the abdomen were obtained 7 minutes post ingestion. Patient Emptying Values 1 Hour 6 % 2 Hours 3 % 3 Hours 0 % 4 Hours 6 % Gastroesophageal reflux: None IMPRESSION: Gastric emptying: Markedly delayed gastric emptying. Gastroesophageal reflux: None Gastric emptying normal percentage values: 30 minutes: <70% of retention (> 30% emptying) suggests abnormally fast emptying. 60 minutes: <90% retention (>10% emptying) is normal; less than 30% retention (>70% emptying) suggest s abnormally rapid emptying. 90 minutes: <65% retention (> 35% emptying) is normal. 120 minutes: <60% retention (> 40% emptying) is normal. 180 minutes: <30% retention (> 70% emptying) is normal. Gastric emptying T-1/2: Solid: The normal range is 60-105 minutes Liquid only: Normal range is 10-45 minutes. Liquid only-children: At 60 minutes, normal range is 44-58 % . Liquid only-infants: At 60 minutes, normal range is 32-64 %. Additional references: Gastric Emptying Scintigraphy [email or web address]://[email or web address]
== END | disposition home or self-care (01) ==
LOC: RADNMMAIN 07:00
PROVIDERS: ATTEND Internal Medicine Gastroenterology
DX: K30 Functional dyspepsia (principal); R68.81 Early satiety
CPT/HCPCS: 78264; A9541

== ENCOUNTER → 2023-01-02 | Outpatient (CLI) | payer MEDICARE, BC ==
--- NOTE | 2023-01-02 09:51 | US ---
EXAMINATION TYPE: US abdomen complete DATE OF EXAM: 01/02/2023 COMPARISON: NONE CLINICAL HISTORY: Thrombocytopenia D69.6. Thrombocytopenia TECHNIQUE: Multiple sonographic images of the abdomen are obtained. 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 The intrahepatic portion of the IVC and proximal abdominal aorta are within normal limits. Common bile duct is unremarkable. The visualized portions of the pancreas are homo genous. The spleen is unremarkable. Kidneys are symmetric and free of hydronephrosis. No renal les ions are seen. IMPRESSION: No discrete abnormality appreciated.
== END | disposition home or self-care (01) ==
LOC: RADUSWWP 08:06
PROVIDERS: ATTEND Internal Medicine Hematology & Oncology
DX: J45.909 Unspecified asthma, uncomplicated (principal); E78.5 Hyperlipidemia, unspecified; D61.818 Other pancytopenia; R06.02 Shortness of breath
CPT/HCPCS: 76700

== ENCOUNTER → 2023-01-09 | Outpatient (CLI) | payer MEDICARE, BC ==
--- NOTE | 2023-01-10 08:28 | MM ---
Reason for Exam: Screening (asymptomatic). Last screening mammogram was performed 12 month(s) ago. Patient History: Menarche at age 15. First Full-Term at age 25. Left ovary removed at age 38. Right ovary removed at age 38. Hysterectomy at age 38. Postmenopausal. Patient used Estrogen for 27 years. 06/16/2017, Benign Core Biopsy on the left side. Sister had breast cancer at or over age 50. Risk Values: Coby 5 year model risk: 2.9%. NCI Lifetime model risk: 2.9%. Prior Study Comparison: 05/31/2017 Bilateral Diagnostic Mammogram, [facility]. 11/01/2018 Bilateral Diagnostic Mammogram, [facility]. 01/07/2022 Bilateral Screening Mammogram, [facility]. Tissue Density: The breast tissue is heterogeneously dense. This may lower the sensitivity of mammography. Findings: Analyzed By CAD. There is no suspicious group of microcalcifications or new suspicious mass in either breast. Overall Assessment: Benign, BI-RAD 2 Management: Screening Mammogram of both breasts in 1 year. A clinical breast exam by your physician is recommended on an annual basis and results should be correlated with mammographic findings. Electronically signed and approved by: Yuan Weir M.D. Radiologis
== END | disposition home or self-care (01) ==
LOC: RADMAMWWP 07:47
PROVIDERS: ATTEND Family Medicine
DX: Z12.31 Encounter for screening mammogram for malignant neoplasm of breast (principal); Z78.0 Asymptomatic menopausal state; Z80.3 Family history of malignant neoplasm of breast
CPT/HCPCS: 77063; 77067

== ENCOUNTER → 2023-06-05 | Outpatient (CLI) | payer MEDICARE, BC ==
[2023-06-05 16:06] LABS: Chol/HDL Ratio 2.96 Ratio; LDL Cholesterol,Calculated 85.4 mg/dL (0.0-131.0); T4, Free (Free Thyroxine) 1.31 ng/dL (0.80-1.80); VLDL Calculation 19.24 mg/dL (5.00-40.00)
== END | disposition home or self-care (01) ==
LOC: LABWHC1 10:55
PROVIDERS: ATTEND Family Medicine
DX: Z00.00 Encounter for general adult medical examination without abnormal findings (principal)
CPT/HCPCS: 36415; 80061; 83036; 84439; 84443

== ENCOUNTER → 2023-11-30 | Outpatient (CLI) | payer MEDICARE, BC ==
[2023-11-30 12:21] LABS: African American GFR (CKD) >90 (>60 ml/min/1.73 sqM); Blood Urea Nitrogen 20 mg/dL (7-17); Non-African American GFR(CKD) 81 (>60 ml/min/1.73 sqM)
--- NOTE | 2023-11-30 13:54 | CT ---
EXAMINATION: CT ABDOMEN AND PELVIS WITH IV CONTRAST DATE OF EXAMINATION: 11/30/2023. COMPARISON: 07/21/2021.. INDICATION: Abdominal pain and weight loss. PROCEDURE: Axial CT of the abdomen and pelvis was performed with contrast and sagittal and coronal reformatted images were performed. CT dose lowering techniques were used, to include: automated expos ure control, adjustment for patient size, and/or use of iterative reconstruction. FINDINGS: LOWER CHEST : The visualized lung bases are clear. There are no pleural or pericardial effusions. ABDOMEN: Liver and Biliary system: There is moderate intrahepatic biliary ductal dilation and significant ext rahepatic biliary ductal dilation with the common bile duct measuring up to approximately 1.7 cm in d iameter. This appears similar to the previous examination. Subcentimeter hypodensity in the left lobe of liver is too small to fully characterize and unchanged. No new liver lesions are suspicious liver lesions are otherwise seen. Adrenal glands: Normal. Kidneys and ureters: Normal. Spleen: Normal. Pancreas: Pancreatic parenchymal atrophy is seen with pancreatic ductal dilation that is not signifi cant change since the previous examination. The pancreatic duct measures up to approximately 5 mm in diameter.. Gallbladder: Surgically absent. Lymph nodes, Peritoneum and mesentery: There is no mesenteric or retroperitoneal lymphadenopathy. Gastrointestinal tract: There are no dilated loops of bowel or free intraperitoneal air. There is a small sliding hiatal hernia. The appendix is not clearly seen with no secondary changes of appendi citis identified. There is mild to moderate descending colonic and sigmoid colonic diverticulosis wit hout evidence of diverticulitis. Aorta/IVC: There is moderate vascular calcification throughout the abdominal aorta without evidence of aneurysmal dilation or dissection. IVC normal. Abdominal wall: Normal. PELVIS: Fluid: There is no free fluid in the pelvis. Lymph Nodes: There is no pelvic or inguinal lymphadenopathy.. Urinary bladder: Normal. BONES: Posterior spinal fusion changes are seen between L1 and L3. There are no acute osseous abnorm alities.. ADDITIONAL SIGNIFICANT FINDINGS: None. IMPRESSION: 1. Interim extra hepatic biliary ductal dilation as well as pancreatic ductal dilation and pancreatic atrophy that is not significant change since the previous examination. A clear mass is not seen on t he scope of this examination. 2. Diverticulosis without evidence of diverticulitis. 3. Small hiatal hernia.
== END | disposition home or self-care (01) ==
LOC: RADCTMAIN 11:27
PROVIDERS: ATTEND Internal Medicine Gastroenterology
DX: K44.9 Diaphragmatic hernia without obstruction or gangrene (principal); K57.30 Diverticulosis of large intestine without perforation or abscess without bleeding; K83.8 Other specified diseases of biliary tract; K86.89 Other specified diseases of pancreas; R63.4 Abnormal weight loss
CPT/HCPCS: 82565; 84520; 74177; 36415; Q9967

== ENCOUNTER → 2024-07-09 | Outpatient (CLI) | payer MEDICARE, BC ==
--- NOTE | 2024-07-10 11:24 | MM ---
Reason for Exam: Screening (asymptomatic). Last mammogram was performed 1 year(s) and 6 month(s) ago. Patient History: Menarche at age 15. First Full-Term at age 25. Left ovary removed at age 38. Right ovary removed at age 38. Hysterectomy at age 38. Postmenopausal. Patient used Estrogen for 27 years. 06/16/2017, Benign Core Biopsy on the left side. Sister had breast cancer, age 90. Prior Study Comparison: 11/01/2018 Bilateral Diagnostic Mammogram, [facility]. 01/07/2022 Bilateral Screening Mammogram, [facility]. 01/09/2023 Bilateral MG 3D screening mammo w/cad, [facility]. Tissue Density: There are scattered areas of fibroglandular density. Findings: Analyzed By CAD. Right breast: There is no suspicious group of microcalcifications or new suspicious mass. Left breast: There is no suspicious group of microcalcifications or new suspicious mass. Overall Assessment: Negative, BI-RAD 1 Management: Screening Mammogram of both breasts in [address] [facility] will attempt to contact patient to return for supplemental views and ultrasound if indicated. Patient should continue monthly self-breast exams. A clinical breast exam by your physician is recommended on an annual basis. This exam should not preclude additional follow-up of suspicious palpable abnormalities. Note on Coby scores and lifetime risk: 1. A Coby score greater than 3% is considered moderate risk. If this is the case, consider specialist referral to assess eligibility for a risk reducing agent. 2. If overall lifetime risk for the development of breast cancer is 20% or higher, the patient may qualify for future screening with alternating mammogram and breast MRI. [facility], , 07/10/2024 11:21 AM. Electronically signed and approved by: Christo Chandler DO
== END | disposition home or self-care (01) ==
LOC: RADMAMWWP 08:40
PROVIDERS: ATTEND Family Medicine
CPT/HCPCS: 77063; 77067